=== PATIENT | female | born 1960 | race Caucasian/White ===

== ENCOUNTER 2016-11-21 09:00 | Emergency (ER) | payer OTHER ==
[2016-11-21] MEDS ORDERED: Sodium Chloride 0.9% 1,000 ML IV ONE ×2 (09:29→10:51)
--- NOTE | 2016-11-21 09:32 | EDM.PDOC ---
ED HPI DIABETIC EMERGENCY - General Chief Complaint: Diabetic Complaint Stated Complaint: HIGH BLOOD SUGAR Time Seen by Provider: 11/21/16 09:07 Source of Information: Reports: Patient - History of Present Illness INITIAL COMMENTS - FREE TEXT/NARRATIVE: 56 yo female DM 2 who is on insulin and metformin presents to ED for palpitations, shakiness, sweating, light headed where she laid on the floor. She does not have CP, sob, syncope. She checked her blood sugar this morning which was 304. She has not eaten and did not take her insulin because she never had such high readings. Her blood sugars average between 129-140. She takes metformin 500 bid, lantus 30 units and novolog 12 units TID. She has a history of severe anxiety where she takes clonapin 0.5 bid. She has not seen a physician for four months. She has an appointment next week with her PCP. - Related Data Allergies/ADRs: Allergies Allergy/AdvReac Type Severity Reaction Status Date / Time levofloxacin [From Levaquin] Allergy Nausea Verified 11/21/16 09:06 morphine Allergy Hives Verified 11/21/16 09:06 Sulfa (Sulfonamide Allergy Hives Verified 11/21/16 09:06 Antibiotics) Home Meds: Home Meds Famotidine [Pepcid] 1 tab PO DAILY 05/20/15 [History] Insulin Aspart [NovoLOG] 12 unit SQ TID 05/20/15 [History] Insulin Glarg,Human.Rec.Analog [LantUS Solostar] 30 unit SQ BID 05/20/15 [ History] Simvastatin [Zocor] 40 mg PO BEDTIME 05/20/15 [History] metFORMIN HCl [Fortamet] 1 tab PO DAILY 05/20/15 [History] traZODone 1 tab PO DAILY 05/20/15 [History] Past Medical History Gastrointestinal History: Reports: Diverticulosis, GERD, Irritable bowel syndrome Other Genitourinary History: yeast infection 2 months ago Other OB/BYN History: partial hysterectomy, 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 Psychiatric History: Reports: Anxiety, Depression Endocrine/Metabolic History: Reports: Diabetes, type II - Past Surgical History GI Surgical History: Reports: None Endocrine Surgical History: Reports: None Social & Family History - Family History Family Medical History: Noncontributory - Tobacco Use Smoking Status *Q: Never Smoker Second Hand Smoke Exposure: No - Caffeine Use Caffeine Use: Reports: Soda Caffeine Use Comment: [id number] - Recreational Drug Use Recreational Drug Use: No ED ROS GENERAL - Review of Systems Review Of Systems: See Below Constitutional: Reports: diaphoresis HEENT: Reports: No symptoms Respiratory: Reports: No Symptoms Cardiovascular: Reports: No symptoms Endocrine: Reports: high glucose, other (lightheaded, dizzy) GI/Abdominal: Reports: No symptoms : Reports: no symptoms Musculoskeletal: Reports: no symptoms Skin: Reports: no symptoms ED EXAM GENERAL NO PERIP PULSE - Physical Exam Exam: See Below Exam Limited By: Other (nervous, hyperventillating) General Appearance: alert, WD/WN, anxious Eye Exam: bilateral eye: EOMI Ears: normal external exam, normal canal Nose: normal inspection Throat/Mouth: Normal inspection, Normal lips, Normal teeth Head: atraumatic, normocephalic Neck: normal inspection, supple Respiratory/Chest: no respiratory distress Cardiovascular: regular rate, rhythm GI/Abdominal: normal bowel sounds, soft Back Exam: normal inspection, full range of motion Extremities: normal inspection, normal range of motion Neurological: alert, oriented, CN II-XII intact, normal cognition, normal reflexes Psychiatric: anxious Skin Exam: Warm, Dry, Intact, Normal color, Diaphoretic Course - Vital Signs Text/Narrative:: She had a episode of hyperventillation syndrome. EKG did not show any bradycardia or arrythmia. Her troponin is negative. Last Recorded V/S: Last Vital Signs Temp 98.5 F 11/21/16 09:09 Pulse 86 11/21/16 12:00 Resp 18 11/21/16 12:00 BP 127/74 11/21/16 12:00 Pulse Ox 95 11/21/16 12:00 - Orders/Labs/Meds Orders: Active Orders 24 hr Category Date Time Status EKG Documentation Completion [RC] STAT Care 11/21/16 09:01 Active EKG Documentation Completion [RC] STAT Care 11/21/16 09:48 Active Labs: Laboratory Tests 11/21/16 11/21/16 11/21/16 Range/Units 09:11 09:31 09:31 WBC 7.51 (4.0-11.0) K/uL RBC 4.83 (4.30-5.90) M/uL Hgb 13.5 (12.0-16.0) g/dL Hct 40.7 (36.0-46.0) % MCV 84.3 (80.0-98.0) fL MCH 28.0 (27.0-32.0) pg MCHC 33.2 (31.0-37.0) g/dL RDW Std Deviation 39.1 (28.0-62.0) fl RDW Coeff of [place] 13 (11.0-15.0) % Plt Count 306 (150-400) K/uL MPV 9.50 (7.40-12.00) fL Neut % (Auto) 41.9 L (48.0-80.0) % Lymph % (Auto) 47.7 H (16.0-40.0) % Ada % (Auto) 7.1 (0.0-15.0) % Eos % (Auto) 2.9 (0.0-7.0) % Baso % (Auto) 0.4 (0.0-1.5) % Neut # 3.2 (1.4-5.7) K/uL Lymph # 3.6 H (0.6-2.4) K/uL Ada # 0.5 (0.0-0.8) K/uL Eos # 0.2 (0.0-0.7) K/uL Baso # 0.0 (0.0-0.1) K/uL Nucleated RBC % 0.0 /100WBC Nucleated RBCs # 0 K/uL Sodium 134 L (136-146) mmol/L Potassium 4.4 (3.5-5.1) mmol/L Chloride 103 (98-110) mmol/L Carbon Dioxide 18 L (21-31) mmol/L BUN 17 (6.0-23.0) mg/dL Creatinine 0.8 (0.6-1.5) mg/dL Est Cr Clr Drug Dosing 57.74 mL/min Estimated GFR (MDRD) > 60.0 ml/min Glucose 303 H (60-110) mg/dL POC Glucose 294 H (60-110) mg/dL Calcium 9.2 (8.8-10.8) mg/dL Troponin I (0.0-0.29) NG/ML Urine Color Urine Appearance Urine pH (5.0-8.0) Ur Specific [place] (1.001-1.035) Urine Protein (NEGATIVE) mg/dL Urine Glucose (UA) (NEGATIVE) mg/dL Urine Ketones (NEGATIVE) mg/dL Urine Occult Blood (NEGATIVE) Urine Nitrite (NEGATIVE) Urine Bilirubin (NEGATIVE) Urine Urobilinogen (<2.0) EU/dL Ur Leukocyte Esterase (NEGATIVE) Urine RBC (0-2/HPF) Urine WBC (0-5/HPF) Ur Epithelial Cells (NONE-FEW) Urine Bacteria (NEGATIVE) Urine Mucus (NONE-MOD) 11/21/16 11/21/16 11/21/16 Range/Units 09:44 10:19 11:01 WBC (4.0-11.0) K/uL RBC (4.30-5.90) M/uL Hgb (12.0-16.0) g/dL Hct (36.0-46.0) % MCV (80.0-98.0) fL MCH (27.0-32.0) pg MCHC (31.0-37.0) g/dL RDW Std Deviation (28.0-62.0) fl RDW Coeff of [place] (11.0-15.0) % Plt Count (150-400) K/uL MPV (7.40-12.00) fL Neut % (Auto) (48.0-80.0) % Lymph % (Auto) (16.0-40.0) % Ada % (Auto) (0.0-15.0) % Eos % (Auto) (0.0-7.0) % Baso % (Auto) (0.0-1.5) % Neut # (1.4-5.7) K/uL Lymph # (0.6-2.4) K/uL Ada # (0.0-0.8) K/uL Eos # (0.0-0.7) K/uL Baso # (0.0-0.1) K/uL Nucleated RBC % /100WBC Nucleated RBCs # K/uL Sodium (136-146) mmol/L Potassium (3.5-5.1) mmol/L Chloride (98-110) mmol/L Carbon Dioxide (21-31) mmol/L BUN (6.0-23.0) mg/dL Creatinine (0.6-1.5) mg/dL Est Cr Clr Drug Dosing mL/min Estimated GFR (MDRD) ml/min Glucose (60-110) mg/dL POC Glucose 265 H (60-110) mg/dL Calcium (8.8-10.8) mg/dL Troponin I < 0.10 (0.0-0.29) NG/ML Urine Color YELLOW Urine Appearance CLEAR Urine pH 5.5 (5.0-8.0) Ur Specific [place] 1.025 (1.001-1.035) Urine Protein NEGATIVE (NEGATIVE) mg/dL Urine Glucose (UA) >=1000 (NEGATIVE) mg/dL Urine Ketones 15 H (NEGATIVE) mg/dL Urine Occult Blood NEGATIVE (NEGATIVE) Urine Nitrite NEGATIVE (NEGATIVE) Urine Bilirubin NEGATIVE (NEGATIVE) Urine Urobilinogen 0.2 (<2.0) EU/dL Ur Leukocyte Esterase NEGATIVE (NEGATIVE) Urine RBC 0-1 (0-2/HPF) Urine WBC 0-3 (0-5/HPF) Ur Epithelial Cells FEW (NONE-FEW) Urine Bacteria FEW (NEGATIVE) Urine Mucus LIGHT (NONE-MOD) 11/21/16 11/21/16 Range/Units 11:01 12:02 WBC (4.0-11.0) K/uL RBC (4.30-5.90) M/uL Hgb (12.0-16.0) g/dL Hct (36.0-46.0) % MCV (80.0-98.0) fL MCH (27.0-32.0) pg MCHC (31.0-37.0) g/dL RDW Std Deviation (28.0-62.0) fl RDW Coeff of [place] (11.0-15.0) % Plt Count (150-400) K/uL MPV (7.40-12.00) fL Neut % (Auto) (48.0-80.0) % Lymph % (Auto) (16.0-40.0) % Ada % (Auto) (0.0-15.0) % Eos % (Auto) (0.0-7.0) % Baso % (Auto) (0.0-1.5) % Neut # (1.4-5.7) K/uL Lymph # (0.6-2.4) K/uL Ada # (0.0-0.8) K/uL Eos # (0.0-0.7) K/uL Baso # (0.0-0.1) K/uL Nucleated RBC % /100WBC Nucleated RBCs # K/uL Sodium (136-146) mmol/L Potassium (3.5-5.1) mmol/L Chloride (98-110) mmol/L Carbon Dioxide (21-31) mmol/L BUN (6.0-23.0) mg/dL Creatinine (0.6-1.5) mg/dL Est Cr Clr Drug Dosing mL/min Estimated GFR (MDRD) ml/min Glucose (60-110) mg/dL POC Glucose 167 H (60-110) mg/dL Calcium (8.8-10.8) mg/dL Troponin I (0.0-0.29) NG/ML Urine Color Urine Appearance Urine pH (5.0-8.0) Ur Specific [place] (1.001-1.035) Urine Protein (NEGATIVE) mg/dL Urine Glucose (UA) (NEGATIVE) mg/dL Urine Ketones SMALL (NEGATIVE) mg/dL Urine Occult Blood (NEGATIVE) Urine Nitrite (NEGATIVE) Urine Bilirubin (NEGATIVE) Urine Urobilinogen (<2.0) EU/dL Ur Leukocyte Esterase (NEGATIVE) Urine RBC (0-2/HPF) Urine WBC (0-5/HPF) Ur Epithelial Cells (NONE-FEW) Urine Bacteria (NEGATIVE) Urine Mucus (NONE-MOD) Meds: Medications Discontinued Medications Generic Name Dose Route Start Last Admin Trade Name Freq PRN Reason Stop Dose Admin Sodium Chloride 1,000 mls @ 999 mls/hr 11/21/16 09:29 11/21/16 09:58 Normal Saline IV 11/21/16 10:29 999 mls/hr STAT ONE Administration Sodium Chloride 1,000 mls @ 999 mls/hr 11/21/16 10:51 11/21/16 11:08 Normal Saline IV 11/21/16 11:51 999 mls/hr .Bolus ONE Administration Departure - Departure Time of Disposition: 12:31 Disposition: Home, Self-Care 01 Condition: good Clinical Impression: Hyperglycemia, Uncontrolled diabetes mellitus, Mild dehydration, Hyperventilation syndrome Instructions: Hyperventilation, Panic Attacks, [id number], Dehydration, Adult , [id number], Hyperglycemia, [id number] Referrals: Chad Hernandez MD [Primary Care Provider] - Forms: ED Department Discharge Additional Instructions: The following information is given to patients seen in the emergency department who are being discharged to home. This information is to outline your options for follow-up care. We provide all patients seen in our emergency department with a follow-up referral. The need for follow-up, as well as the timing and circumstances, are variable depending upon the specifics of your emergency department visit. If you don't have a primary care physician on staff, we will provide you with a referral. We always advise you to contact your personal physician following an emergency department visit to inform them of the circumstance of the visit and for follow-up with them and/or the need for any referrals to a consulting specialist. The emergency department will also refer you to a specialist when appropriate. This referral assures that you have the opportunity for follow-up care with a specialist. All of these measure are taken in an effort to provide you with optimal care, which includes your follow-up. Under all circumstances we always encourage you to contact your private physician who remains a resource for coordinating your care. When calling for follow-up care, please make the office aware that this follow-up is from your recent emergency room visit. If for any reason you are refused follow-up, please contact the [facility] Emergency Department at and asked to speak to the emergency department charge nurse.
[2016-11-21 10:11] LABS: CHLORIDE,CL 103 mmol/L (98-110); SODIUM,NA 134 mmol/L (136-146)
[2016-11-21 13:18] VITALS: BP 134/82
== END 2016-11-21 12:50 | disposition home or self-care (01) ==
LOC: MW.ED 09:00
DX: E11.65 Type 2 diabetes mellitus with hyperglycemia (principal); E86.0 Dehydration; F45.8 Other somatoform disorders; K57.90 Diverticulosis of intestine, part unspecified, without perforation or abscess without bleeding; K21.9 Gastro-esophageal reflux disease without esophagitis; F41.9 Anxiety disorder, unspecified; F32.9 Major depressive disorder, single episode, unspecified; K58.9 Irritable bowel syndrome, unspecified; Z88.1 Allergy status to other antibiotic agents; Z79.899 Other long term (current) drug therapy; Z79.4 Long term (current) use of insulin; Z88.5 Allergy status to narcotic agent; Z88.2 Allergy status to sulfonamides
CPT/HCPCS: 36415; 80048; 81001; 81003; 82962; 84484; 85025; 93005; 96360; 96361; 99285; J7040; 99284

== ENCOUNTER → 2016-11-28 | Outpatient (CLI) | payer OTHER ==
[2016-11-28 08:45] LABS: CHLORIDE,CL 105 mmol/L (98-110); SODIUM,NA 139 mmol/L (136-146)
== END ==
LOC: MW.CHFP 08:05
PROVIDERS: ATTEND Emergency Medicine
DX: I10 Essential (primary) hypertension (principal); E11.9 Type 2 diabetes mellitus without complications
CPT/HCPCS: 36415; 80053; 80061; 82044; 83036

== ENCOUNTER → 2016-12-21 | Outpatient (CLI) | payer OTHER ==
--- NOTE | 2016-12-21 14:54 | MY ---
EXAMINATION: Bilateral digital mammography utilizing CAD. HISTORY: Screening exam. Comparison is made to previous studies dated 03/04/2014, 03/09/2013. FINDINGS: Bilateral scattered fibroglandular densities. No suspicious calcifications, masses or architectural distortions. No pathologic appearing lymph nodes, no abnormal skin thickening or nipple inversion. CAD highlighted regions appear normal at this time. IMPRESSION: BI-RADS category I - negative mammogram. Continued screening according to ACR-ACS guidelines sugema garsia. THE FALSE-NEGATIVE RATE OF MAMMOGRAM IS APPROXIMATELY 10%. MANAGEMENT OF A PALPABLE ABNORMALITY MUST BE BASED UPON CLINICAL GROUNDS. SENSITIVITY FOR DETECTION OF ABNORMALITIES IN DENSE BREASTS IS LOW. NOTE: A letter will be sent to the patient regarding findings. [facility] -- TACOS Wang [phone] - FAX [phone]
== END ==
LOC: MW.MAM 12:40
PROVIDERS: ATTEND Emergency Medicine
DX: Z23 Encounter for immunization (principal); Z12.31 Encounter for screening mammogram for malignant neoplasm of breast
CPT/HCPCS: G0202; G0202-26

== ENCOUNTER 2017-03-27 11:11 | Day surgery (SDC) | payer OTHER ==
[~2017-03-27 11:11] MED LIST: Acetaminophen/HYDROcodone 325-5 MG Tab PO PRN; Lactated Ringers 1,000 ML IV SCH; ceFAZolin 1 GM in Premix Bag 1 BAG IV SCH
[2017-03-27] MEDS ORDERED: Bupivacaine 0.25% 10 ML SDV ONE (12:24)
--- NOTE | 2017-03-27 12:40 | PCM.PREANE ---
Preanesthetic Assessment - Procedure Proposed Procedure: Left lateral epicondyle debridement - Anesthesia/Transfusion/Family Hx Anesthesia History: Prior Anesthesia Without Reaction Other Type of Anesthesia Reaction Comment: myself and sister , "extremely anxious coming out of surgery" Family History of Anesthesia Reaction: No Transfusion History: No Prior Transfusion(s) Intubation History: Unknown - Review of Systems General: No Symptoms Pulmonary: Other (NOVA but does not tolerate machine) Cardiovascular: Other (HTN) Gastrointestinal: Other (GERD) Other: Reports: Diabetes (insulin dependent Type II), Depression, Anxiety - Physical Assessment NPO Status Date: 03/27/17 Height: 4 ft 11.84 in Weight: 138 lb 10.732 oz ASA Class: 3 Mental Status: Alert & Oriented x3 Airway Class: Mallampati = 2 Dentition: Reports: Normal Dentition Thyro-Mental Finger Breadths: 3 Mouth Opening Finger Breadths: 3 ROM/Head Extension: Limited/Partial Lungs: Clear to Auscultation, Normal Respiratory Effort Cardiovascular: Regular Rate, Regular Rhythm, No Murmurs - Allergies Allergies/Adverse Reactions: Allergies Allergy/AdvReac Type Severity Reaction Status Date / Time levofloxacin [From Levaquin] Allergy Nausea Verified 11/21/16 09:06 morphine Allergy Hives Verified 11/21/16 09:06 Sulfa (Sulfonamide Allergy Hives Verified 11/21/16 09:06 Antibiotics) - Blood Blood Available: No Product(s) Available: None - Anesthesia Plan Pre-Op Medication Ordered: None - Acknowledgements Anesthesia Type Planned: General Anesthesia (LMA vs OET) Pt an Appropriate Candidate for the Planned Anesthesia: Yes Alternatives and Risks of Anesthesia Discussed w Pt/Guardian: Yes Pt/Guardian Understands and Agrees with Anesthesia Plan: Yes PreAnesthesia Questionnaire HEENT History: Reports: Other (See Below) Other HEENT History: wears glasses Cardiovascular History: Reports: Other (See Below) Other Cardiovascular History: states takes losartan and metoprolol to protect kidneys due to diabetes Respiratory History: Reports: PE, Sleep Apnea Other Respiratory History: cannot use CPAP, states very mild sleep apnea Gastrointestinal History: Reports: Diverticulosis, GERD, Irritable Bowel Syndrome Genitourinary History: Reports: UTI, Recurrent 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: Other OB/BYN History: partial hysterectomy, 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 Musculoskeletal History: Reports: Other (See Below) Other Musculoskeletal History: tennis elbow Psychiatric History: Reports: Anxiety, Depression Endocrine/Metabolic History: Reports: Diabetes, Type II, Obesity/BMI 30+ Hematologic History: Reports: Other (See Below) Other Hematologic History: blood clots to lungs 20 yrs ago - Past Surgical History Head Surgeries/Procedures: Reports: None HEENT Surgical History: Reports: Tonsillectomy GI Surgical History: Reports: Colon, Colonoscopy, Hernia, Inguinal Other GI Surgeries/Procedures: colon resection for diverticulitis Female Surgical History: Reports: Breast Biopsy, Hysterectomy, Tubal Ligation Endocrine Surgical History: Reports: None Musculoskeletal Surgical History: Reports: Other (See Below) Other Musculoskeletal Surgeries/Procedures:: hx of toe nails removed from both feet - SUBSTANCE USE Smoking Status *Q: Never Smoker Second Hand Smoke Exposure: No Recreational Drug Use History: No - HOME MEDS Home Medications: Home Meds Insulin Aspart [NovoLOG] 1 dose SQ ASDIRECTED 05/20/15 [History] metFORMIN HCl [Fortamet] 1 tab PO BID 05/20/15 [History] traZODone 0.5 - 1 tab PO BEDTIME 05/20/15 [History] Aspirin [Towner Aspirin] 81 mg PO ASDIRECTED 03/22/17 [History] ClonazePAM [KlonoPIN] 0.5 mg PO ASDIRECTED 03/22/17 [History] Fluconazole [Diflucan] 1 tab PO ASDIRECTED PRN 03/22/17 [History] Losartan Potassium 50 mg PO DAILY 03/22/17 [History] Metoprolol Succinate 50 mg PO DAILY 03/22/17 [History] Psyllium Husk/Aspartame [Metamucil Sugar Free] 1 dose PO ASDIRECTED 03/22/17 [ History] - CURRENT (IN HOUSE) MEDS Current Meds: Current Medications Hydrocodone Bitart/Acetaminophen ([place] 325-5 Mg) 1 - 2 tab PO Q4H PRN PRN Reason: Pain Lactated Ringer's (Ringers, Lactated) 1,000 mls @ 100 mls/hr IV ASDIRECTED [facility] Cefazolin Sodium/Dextrose 1 gm (/ Premix) 50 mls @ 100 mls/hr IV ONCALL [facility] Discontinued Medications Bupivacaine HCl (Sensorcaine-Mpf 0.25%) Confirm Administered Dose 10 ml .ROUTE .STK-MED ONE Stop: 03/27/17 12:25
[2017-03-27] MEDS ORDERED: Propofol 200 MG/20 ML SDV ONE (13:36)
[2017-03-27] MEDS ORDERED: Lidocaine 2% 5 ML SDV ONE (13:36)
[2017-03-27] MEDS ORDERED: Midazolam 1 MG/ML 2 ML SDV ONE (13:37)
[2017-03-27] MEDS ORDERED: fentaNYL 250 MCG/5 ML SDV ONE (13:37)
[2017-03-27] MEDS ORDERED: Ondansetron 4 MG/2 ML SDV ONE (13:43)
[2017-03-27] MEDS ORDERED: Rocuronium 10 MG/ML 10 ML Syringe ONE (13:43)
[2017-03-27] MEDS ORDERED: Neostigmine Methylsulfate 1 MG/ML 5 ML Syringe ONE (13:43)
[2017-03-27] MEDS ORDERED: ePHEDrine 50 MG/ML SDV ONE (14:14)
[2017-03-27] MEDS ORDERED: Bupivacaine 0.25%/EPINEPHrine 1:200,000 10 ML SDV ONE (14:20)
--- NOTE | 2017-03-27 15:05 | PCM.OPNOTE ---
- General Post-Op/Procedure Note Date of Surgery/Procedure: 03/27/17 Operative Procedure(s): Debridement left lateral epicondyle Post-Op Diagnosis: left lateral epicondylitis Anesthesia Technique: General ET Tube Primary Surgeon: Crystal Castellanos Dump Worker: Tadeo Pollard in mLs: 5 Condition: Good Free Text/Narrative:: tt=19min #[id number]
[2017-03-27] MEDS: fentaNYL 100 MCG/2 ML SDV IVPUSH PRN ×4 (15:17→15:51)
--- NOTE | 2017-03-27 15:42 | PCM.POSTAN ---
POST ANESTHESIA ASSESSMENT - MENTAL STATUS Mental Status: Alert, Oriented - VITAL SIGNS Pulse Rate: 102 SaO2: 94 Resp Rate: 24 Blood Pressure: 134/71 - RESPIRATORY Respiratory Status: respiratory rate WNL, Airway Patent, O2 Saturation Stable - CARDIOVASCULAR CV Status: Pulse Rate WNL, Blood Pressure Stable - GASTROINTESTINAL GI Status: No Symptoms - PAIN Pain Score: 6 (Treated with fentanyl) Free Text/Narrative:: Seems to be sleepy but able to voice response. no apparent nausea as in prior anesthetics at this stage of recovery. - POST OP HYDRATION Hydration Status: Adequate & Stable
--- NOTE | 2017-03-27 16:30 | PCM48HPAN ---
Post Anesthesia Note - EVALUATION WITHIN 48HRS OF ANESTHETIC Vital Signs in Normal Range: Yes Patient Participated in Evaluation: Yes Respiratory Function Stable: Yes Airway Patent: Yes Cardiovascular Function Stable: Yes Hydration Status Stable: Yes Pain Control Satisfactory: Yes Nausea and Vomiting Control Satisfactory: Yes Mental Status Recovered: Yes - COMMENTS/OBSERVATIONS Free Text/Narrative:: Pt states pain is under control and denies any nausea. No apparent anesthesia complications.
[2017-03-27 16:50] VITALS: BP 119/63
--- NOTE | 2017-03-28 01:23 | OR ---
SURGEON: Crystal Castellanos MD DATE OF PROCEDURE: 03/27/2017 PREOPERATIVE DIAGNOSIS: Left lateral epicondylitis. POSTOPERATIVE DIAGNOSIS: Left lateral epicondylitis. PROCEDURE: Debridement of left lateral epicondyle. SYRUPER: Tadeo Pollard PA-C. ANESTHESIA: General. ESTIMATED BLOOD LOSS: 5 mL. TOURNIQUET TIME: 19 minutes. COMPLICATIONS: None. DVT PROPHYLAXIS: Not indicated. IMPLANTS USED: None. BRIEF HISTORY: The patient is a 57-year-old female, who has had complaint of persistent left elbow pain. She has tried a variety of conservative treatment, which have not given her lasting relief. Due to her lack of response to conservative treatment, I did recommend surgical intervention. The risks and goals of procedure were discussed with the patient and were documented preoperatively. She agreed to proceed. DESCRIPTION OF PROCEDURE: The patient was properly identified and brought to the operating room. She was transferred from the OR cart and placed on the operating table in supine position. General anesthesia was administered. After adequate anesthesia was obtained, a well-padded tourniquet was applied to the left upper extremity. The left upper extremity was then prepped in standard fashion using ChloraPrep solution. It was then sterilely draped. A time-out was performed to ensure correct site and procedure. Preoperative antibiotics were given. The surgical site had been marked preoperatively. An Esmarch was used to exsanguinate the left upper extremity and the tourniquet was inflated to 200 mmHg. An incision was made over the lateral aspect of the elbow, centered over the lateral epicondyle. Subcutaneous flaps were made and the common extensor tendon was identified. The interval between the ECRB and EDC was identified and incised. The ECRB was then elevated. There was some poor quality tissue noted beneath the tendon which was not adherent to bone. This was also elevated. A rongeur was used to remove the tissue that appeared to be poor quality. The lateral epicondyle was then roughened to provide a good bleeding bone bed. I attempted to place a corkscrew anchor. A 2.0 mm drill was used. The 3.0 suture tack was placed without difficulty. I pulled on the suture and the anchor, I pulled out easily from the bone bed. It appeared to be due to suboptimal bone quality. I also attempted to make bony tunnels to pass the suture through. The bone bridge also broke when pulling up on the suture. Since we had adequate debridement of the lateral epicondyle along with a good bleeding bone bed, I elected to repair the tendons over this as there was good surface area for the tendon to adhere to. The 0 FiberWire was then used to reapproximate the overlying tendon. A nearly watertight closure was obtained. The tourniquet was deflated and the elbow was taken through a range of motion. No impingement was noted. No excess bleeding was found. The wound was then copiously irrigated with saline solution. The subcutaneous tissues were closed with 2-0 Monocryl and the skin was closed with a running 4-0 Monocryl suture. Steri-Strips and Benzoin were placed. 0.5% Marcaine was injected along the incision site at the completion of the procedure. Xeroform gauze was placed over the wound and a bulky dressing was applied. She was transferred back to the operating room cart and brought to recovery room in stable condition. All needle and sponge counts were correct. She was instructed to use a wrist splint at home to help rest the extensor tendon. KI / TAY /[id number]
== END 2017-03-27 16:45 | disposition home or self-care (01) ==
LOC: MW.SDS 11:11
PROVIDERS: ATTEND Orthopaedic Surgery
PROC: 0L840ZZ Division of Left Upper Arm Tendon, Open Approach (ICD-10-PCS; principal; 2017-03-27)
DX: M77.12 Lateral epicondylitis, left elbow (principal); F41.9 Anxiety disorder, unspecified; F32.9 Major depressive disorder, single episode, unspecified; E11.9 Type 2 diabetes mellitus without complications; E78.5 Hyperlipidemia, unspecified; K21.9 Gastro-esophageal reflux disease without esophagitis; I10 Essential (primary) hypertension; K58.9 Irritable bowel syndrome, unspecified; G47.33 Obstructive sleep apnea (adult) (pediatric); E66.9 Obesity, unspecified; Z88.1 Allergy status to other antibiotic agents; Z88.5 Allergy status to narcotic agent; Z88.2 Allergy status to sulfonamides; Z79.82 Long term (current) use of aspirin; Z79.4 Long term (current) use of insulin; Z79.84 Long term (current) use of oral hypoglycemic drugs; Z79.899 Other long term (current) drug therapy; Z98.51 Tubal ligation status; Z90.710 Acquired absence of both cervix and uterus; Z90.89 Acquired absence of other organs; Z98.890 Other specified postprocedural states; Z68.35 Body mass index [BMI] 35.0-35.9, adult; Z86.711 Personal history of pulmonary embolism; Z87.440 Personal history of urinary (tract) infections
CPT/HCPCS: 24359; A9270; C1713; J0690; J2250; J2405; J3010; J7120; 00400; 82962; J2704

== ENCOUNTER 2017-10-06 09:48 | Emergency (ER) | payer OTHER ==
[2017-10-06] MEDS ORDERED: Sodium Chloride 0.9% 1,000 ML IV ONE (10:17)
--- NOTE | 2017-10-06 10:31 | EDM.PDOC ---
ED HPI GENERAL MEDICAL PROBLEM - General Chief Complaint: Respiratory Problem Stated Complaint: COUGH,FEVER,SHORTNESS OF BREATH Time Seen by Provider: 10/06/17 10:15 - History of Present Illness INITIAL COMMENTS - FREE TEXT/NARRATIVE: HISTORY AND PHYSICAL: History of present illness: Patient 57-year-old white female history of diabetes who presents with concern of cough congestion body aches over last several days she denies vomiting and diarrhea or other concern she states her blood sugars have been running in the 200 range with this current illness. She also complains of sore throat Review of systems: As per history of present illness and below otherwise all systems reviewed and negative. Past medical history: As per history of present illness and as reviewed below otherwise noncontributory. Surgical history: As per history of present illness and as reviewed below otherwise noncontributory. Social history: No reported history of drug or alcohol abuse. Family history: As per history of present illness and as reviewed below otherwise noncontributory. Physical exam: HEENT: Atraumatic, normocephalic, pupils reactive, negative for conjunctival pallor or scleral icterus, mucous membranes dry, throat clear, neck supple, nontender, trachea midline. Lungs: Clear to auscultation, breath sounds equal bilaterally, chest nontender. Heart: S1S2, regular, negative for clicks, rubs, or JVD. Abdomen: Soft, nondistended, nontender. Negative for masses or hepatosplenomegaly. Negative for costovertebral tenderness. Pelvis: Stable nontender. Genitourinary: Deferred. Rectal: Deferred. Extremities: Atraumatic, negative for cords or calf pain. Neurovascular unremarkable. Neuro: Awake, alert, oriented. Cranial nerves II through XII unremarkable. Cerebellum unremarkable. Motor and sensory unremarkable throughout. Exam nonfocal. Diagnostics: CBC CMP EKG influenza screen rapid strep chest x-ray Therapeutics: Saline liter bolus Impression: #1 viral syndrome #2 history diabetes Definitive disposition and diagnosis as appropriate pending reevaluation and review of above. - Related Data Allergies Allergy/AdvReac Type Severity Reaction Status Date / Time levofloxacin [From Levaquin] Allergy Nausea Verified 11/21/16 09:06 morphine Allergy Hives Verified 11/21/16 09:06 Sulfa (Sulfonamide Allergy Hives Verified 11/21/16 09:06 Antibiotics) Home Meds: Home Meds Insulin Aspart [NovoLOG] 1 dose SQ ASDIRECTED 05/20/15 [History] metFORMIN HCl [Fortamet] 1 tab PO BID 05/20/15 [History] traZODone 0.5 - 1 tab PO BEDTIME 05/20/15 [History] Aspirin [[place] Aspirin] 81 mg PO ASDIRECTED 03/22/17 [History] ClonazePAM [KlonoPIN] 0.5 mg PO ASDIRECTED 03/22/17 [History] Fluconazole [Diflucan] 1 tab PO ASDIRECTED PRN 03/22/17 [History] Losartan Potassium 50 mg PO DAILY 03/22/17 [History] Metoprolol Succinate 50 mg PO DAILY 03/22/17 [History] Psyllium Husk/Aspartame [Metamucil Sugar Free] 1 dose PO ASDIRECTED 03/22/17 [ History] Acetaminophen/HYDROcodone [[place] 325-5 MG] 1 - 2 tab PO Q4H PRN #80 tablet 03/27 [Rx] Past Medical History HEENT History: Reports: Other (See Below) Other HEENT History: wears glasses Cardiovascular History: Reports: Other (See Below) Other Cardiovascular History: states takes losartan and metoprolol to protect kidneys due to diabetes Respiratory History: Reports: PE, Sleep Apnea Other Respiratory History: cannot use CPAP, states very mild sleep apnea Gastrointestinal History: Reports: Diverticulosis, GERD, Irritable Bowel Syndrome Genitourinary History: Reports: UTI, Recurrent 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 OB/BYN History: partial hysterectomy, 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 Musculoskeletal History: Reports: Other (See Below) Other Musculoskeletal History: tennis elbow Psychiatric History: Reports: Anxiety, Depression Endocrine/Metabolic History: Reports: Diabetes, Type II, Obesity/BMI 30+ Hematologic History: Reports: Other (See Below) Other Hematologic History: blood clots to lungs 20 yrs ago - Past Surgical History Head Surgeries/Procedures: Reports: None HEENT Surgical History: Reports: Tonsillectomy GI Surgical History: Reports: Colon, Colonoscopy, Hernia, Inguinal Other GI Surgeries/Procedures: colon resection for diverticulitis Female Surgical History: Reports: Breast Biopsy, Hysterectomy, Tubal Ligation Endocrine Surgical History: Reports: None Musculoskeletal Surgical History: Reports: Other (See Below) Other Musculoskeletal Surgeries/Procedures:: hx of toe nails removed from both feet Social & Family History - Family History Family Medical History: Noncontributory - Tobacco Use Smoking Status *Q: Never Smoker Second Hand Smoke Exposure: No - Caffeine Use Caffeine Use: Reports: Soda Caffeine Use Comment: 32ozx1 - Alcohol Use Days Per Week of Alcohol Use: 1 - Recreational Drug Use Recreational Drug Use: No ED ROS GENERAL - Review of Systems Review Of Systems: ROS reveals no pertinent complaints other than HPI. ED EXAM, GENERAL - Physical Exam Exam: See Below (See dictation) Course - Vital Signs Last Recorded V/S: Last Vital Signs Temp 37.1 C 10/06/17 09:55 Pulse 138 H 10/06/17 09:55 Resp 22 H 10/06/17 09:55 BP 144/76 H 10/06/17 09:55 Pulse Ox 96 10/06/17 09:55 - Orders/Labs/Meds Orders: Active Orders 24 hr Category Date Time Status EKG Documentation Completion [RC] STAT Care 10/06/17 10:17 Active Chest 2V [CR] Stat Exams 10/06/17 10:17 Ordered COMPREHENSIVE METABOLIC PN,CMP [CHEM] Stat Lab 10/06/17 10:16 Ordered STREP SCRN A RAPID W CULT CONF [RM] Stat Lab 10/06/17 10:21 Received Sodium Chloride 0.9% [Normal Saline] 1,000 ml Med 10/06/17 10:17 Active IV STAT Medication Orders Sodium Chloride (Normal Saline) 1,000 mls @ 999 mls/hr IV STAT ONE Stop: 10/06/17 11:17 Labs: Laboratory Tests 10/06/17 Range/Units 10:48 WBC 8.35 (4.0-11.0) K/uL RBC 4.63 (4.30-5.90) M/uL Hgb 13.0 (12.0-16.0) g/dL Hct 39.9 (36.0-46.0) % MCV 86.2 (80.0-98.0) fL MCH 28.1 (27.0-32.0) pg MCHC 32.6 (31.0-37.0) g/dL RDW Std Deviation 42.6 (28.0-62.0) fl RDW Coeff of [place] 14 (11.0-15.0) % Plt Count 269 (150-400) K/uL MPV 9.10 (7.40-12.00) fL Neut % (Auto) 76.1 (48.0-80.0) % Lymph % (Auto) 13.9 L (16.0-40.0) % [place] % (Auto) 9.7 (0.0-15.0) % Eos % (Auto) 0.2 (0.0-7.0) % Baso % (Auto) 0.1 (0.0-1.5) % Neut # (Auto) 6.4 H (1.4-5.7) K/uL Lymph # (Auto) 1.2 (0.6-2.4) K/uL [place] # (Auto) 0.8 (0.0-0.8) K/uL Eos # (Auto) 0.0 (0.0-0.7) K/uL Baso # (Auto) 0.0 (0.0-0.1) K/uL Nucleated RBC % 0.0 /100WBC Nucleated RBCs # 0 K/uL Meds: Medications Generic Name Dose Route Start Last Admin Trade Name Freq PRN Reason Stop Dose Admin Sodium Chloride 1,000 mls @ 999 mls/hr 10/06/17 10:17 Normal Saline IV 10/06/17 11:17 STAT ONE Departure - Departure Time of Disposition: 11:01 Disposition: Home, Self-Care 01 Condition: Good Clinical Impression: Influenza, Diabetes - Discharge Information Referrals: Chad Hernandez MD [Primary Care Provider] - Forms: ED Department Discharge Additional Instructions: The following information is given to patients seen in the emergency department who are being discharged to home. This information is to outline your options for follow-up care. We provide all patients seen in our emergency department with a follow-up referral. The need for follow-up, as well as the timing and circumstances, are variable depending upon the specifics of your emergency department visit. If you don't have a primary care physician on staff, we will provide you with a referral. We always advise you to contact your personal physician following an emergency department visit to inform them of the circumstance of the visit and for follow-up with them and/or the need for any referrals to a consulting specialist. The emergency department will also refer you to a specialist when appropriate. This referral assures that you have the opportunity for followup care with a specialist. All of these measure are taken in an effort to provide you with optimal care, which includes your followup. Under all circumstances we always encourage you to contact your private physician who remains a resource for coordinating your care. When calling for followup care, please make the office aware that this follow-up is from your recent emergency room visit. If for any reason you are refused follow-up, please contact the [facility] emergency department at and asked to speak to the emergency department charge nurse. Continue current medications Tamiflu as prescribed push fluids Motrin/Tylenol as directed follow-up primary medical doctor as needed as discussed and return as needed as discussed - My Orders Last 24 Hours: My Active Orders 10/06/17 10:16 COMPREHENSIVE METABOLIC PN,CMP [CHEM] Stat 10/06/17 10:17 EKG Documentation Completion [RC] STAT Chest 2V [CR] Stat Sodium Chloride 0.9% [Normal Saline] 1,000 ml IV STAT 10/06/17 10:21 STREP SCRN A RAPID W CULT CONF [RM] Stat - Assessment/Plan Last 24 Hours: My Active Orders 10/06/17 10:16 COMPREHENSIVE METABOLIC PN,CMP [CHEM] Stat 10/06/17 10:17 EKG Documentation Completion [RC] STAT Chest 2V [CR] Stat Sodium Chloride 0.9% [Normal Saline] 1,000 ml IV STAT 10/06/17 10:21 STREP SCRN A RAPID W CULT CONF [RM] Stat
[2017-10-06 11:14] LABS: CHLORIDE,CL 104 mmol/L (98-110); SODIUM,NA 135 mmol/L (136-146)
[2017-10-06 12:32] VITALS: BP 138/75
--- NOTE | 2017-10-07 16:07 | CR ---
EXAM DATE: 10/06/17 PATIENT'S AGE: 57 Patient: MARIA FERNANDA PADILLA Facility: [place], [place] Site . Site : [id number] Study: XRay Chest [id number]/28/2018 11:47:52 AM Ordering Physician: Doctor Jamil Final Report: HISTORY: Cough, shortness of breath. TECHNIQUE: Two views of the chest. COMPARISON: No prior. FINDINGS: Cardiac size within normal limits. Pulmonary vasculature within normal limits. No consolidation. Possible lung nodule in the right cardiophrenic angle region. Recommend comparison with prior chest radiographs or radiographic followup. No pulmonary edema. No pneumothorax or pleural effusion. Degenerative changes of the spine. IMPRESSION: 1. No consolidation or pulmonary edema. 2. Possible nodule in the right cardiophrenic angle. Recommend comparison with prior chest radiographs or radiographic followup. Dictated by Pipe Shankar MD @ 10/06/2017 12:17:05 PM Dictated by: Pipe Shankar MD @ 10/06/2017 12:17:10 (Electronic Signature) Report Signed by Proxy. ABI
== END 2017-10-06 12:08 | disposition home or self-care (01) ==
LOC: MW.ED 09:48
DX: J10.1 Influenza due to other identified influenza virus with other respiratory manifestations (principal); B34.9 Viral infection, unspecified; E11.9 Type 2 diabetes mellitus without complications; Z88.1 Allergy status to other antibiotic agents; Z88.5 Allergy status to narcotic agent; Z88.2 Allergy status to sulfonamides; Z79.4 Long term (current) use of insulin; Z79.899 Other long term (current) drug therapy
CPT/HCPCS: 36415; 71046; 80053; 85025; 87081; 87804; 87880; 93005; 96360; 99285; J7040

== ENCOUNTER 2018-10-06 15:13 | Emergency (ER) | payer OTHER ==
--- NOTE | 2018-10-06 15:30 | EDM.PDOC ---
ED HPI GENERAL MEDICAL PROBLEM - General Chief Complaint: Head Injury Stated Complaint: FELL ON ICE AND HIT HEAD Time Seen by Provider: 10/06/18 15:30 Source of Information: Reports: Patient - History of Present Illness INITIAL COMMENTS - FREE TEXT/NARRATIVE: HISTORY AND PHYSICAL: History of present illness: [Patient presents with headache and dizziness after she slipped and fell on the ice this morning she did strike the back of her head and denies loss of consciousness but has had increased headache she currently rates 5 out of 10 radiating to the left eye no fever vomiting chills sweats ] Review of systems: As per history of present illness and below otherwise all systems reviewed and negative. Past medical history: As per history of present illness and as reviewed below otherwise noncontributory. Surgical history: As per history of present illness and as reviewed below otherwise noncontributory. Social history: No reported history of drug or alcohol abuse. Family history: As per history of present illness and as reviewed below otherwise noncontributory. Physical exam: HEENT: Atraumatic, normocephalic, pupils reactive, negative for conjunctival pallor or scleral icterus, mucous membranes moist, throat clear, neck supple, nontender, trachea midline. Lungs: Clear to auscultation, breath sounds equal bilaterally, chest nontender. Heart: S1S2, regular, negative for clicks, rubs, or JVD. Abdomen: Soft, nondistended, nontender. Negative for masses or hepatosplenomegaly. Negative for costovertebral tenderness. Pelvis: Stable nontender. Genitourinary: Deferred. Rectal: Deferred. Extremities: Atraumatic, negative for cords or calf pain. Neurovascular unremarkable. Neuro: Awake, alert, oriented. Cranial nerves II through XII unremarkable. Cerebellum unremarkable. Motor and sensory unremarkable throughout. Exam nonfocal. Diagnostics: []Head CT no contrast Therapeutics: Promethazine and mg #30 no refill Impression: []Concussion Definitive disposition and diagnosis as appropriate pending reevaluation and review of above. headache Pain Score (Numeric/FACES): 8 - Related Data Allergies Allergy/AdvReac Type Severity Reaction Status Date / Time levofloxacin [From Levaquin] Allergy Rash Verified 10/06/18 15:37 morphine Allergy Itching Verified 10/06/18 15:37 Sulfa (Sulfonamide Allergy Hives Verified 10/06/18 15:37 Antibiotics) Home Meds: Home Meds Insulin Aspart [NovoLOG] 1 dose SQ ASDIRECTED MDD 115 units 05/20/15 [History] metFORMIN HCl [Fortamet] 1,000 mg PO BID 05/20/15 [History] traZODone 200 mg PO BEDTIME 05/20/15 [History] Aspirin [[place] Aspirin EC] 81 mg PO ASDIRECTED 03/22/17 [History] ClonazePAM [KlonoPIN] 0.5 - 1 mg PO DAILY PRN 03/22/17 [History] Losartan Potassium 50 mg PO QAM 03/22/17 [History] Metoprolol Succinate 50 mg PO QAM 03/22/17 [History] Psyllium Husk/Aspartame [Metamucil Sugar Free] 1 dose PO ASDIRECTED PRN [History] Diclofenac Sodium [Voltaren] 50 mg PO BID 08/25/18 [History] Magnesium Oxide [Magnesium] 1 - 2 tab PO DAILY PRN 08/25/18 [History] Ranitidine [Zantac] 150 mg PO BID 08/25/18 [History] clonazePAM [Clonazepam] 1 mg PO BEDTIME PRN 08/25/18 [History] Past Medical History HEENT History: Reports: Other (See Below) Other HEENT History: wears glasses Cardiovascular History: Reports: Other (See Below) Other Cardiovascular History: states takes losartan and metoprolol to protect kidneys due to diabetes Respiratory History: Reports: PE, Sleep Apnea Other Respiratory History: cannot use CPAP, states very mild sleep apnea Gastrointestinal History: Reports: Diverticulosis, GERD, Irritable Bowel Syndrome Genitourinary History: Reports: UTI, Recurrent 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, 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 Musculoskeletal History: Reports: Other (See Below) Other Musculoskeletal History: tennis elbow Neurological History: Reports: Other (See Below) Other Neuro History: hx of motion sickness Psychiatric History: Reports: Anxiety, Depression Other Psychiatric History: very Claustrophobic Endocrine/Metabolic History: Reports: Diabetes, Type II, Obesity/BMI 30+ Hematologic History: Reports: Other (See Below) Other Hematologic History: blood clots to lungs 20 yrs ago - Past Surgical History HEENT Surgical History: Reports: Tonsillectomy GI Surgical History: Reports: Colon, Colonoscopy, Hernia, Inguinal Other GI Surgeries/Procedures: colon resection for diverticulitis Other Musculoskeletal Surgeries/Procedures:: hx of toe nails removed from both feet Social & Family History - Family History Family Medical History: Noncontributory - Caffeine Use Caffeine Use: Reports: Soda Caffeine Use Comment: 32ozx1 ED ROS GENERAL - Review of Systems Review Of Systems: See Below ED EXAM, HEAD INJURY - Physical Exam Exam: See Below Course - Vital Signs Last Recorded V/S: Last Vital Signs Temp 98.3 F 10/06/18 15:34 Pulse 91 10/06/18 15:34 Resp 18 10/06/18 15:34 BP 160/74 H 10/06/18 15:34 Pulse Ox 95 10/06/18 15:34 Departure - Departure Time of Disposition: 16:08 Disposition: Home, Self-Care 01 Condition: Good Clinical Impression: Concussion - Discharge Information Referrals: Chad Hernandez MD [Primary Care Provider] - Forms: ED Department Discharge Additional Instructions: The following information is given to patients seen in the emergency department who are being discharged to home. This information is to outline your options for follow-up care. We provide all patients seen in our emergency department with a follow-up referral. The need for follow-up, as well as the timing and circumstances, are variable depending upon the specifics of your emergency department visit. If you don't have a primary care physician on staff, we will provide you with a referral. We always advise you to contact your personal physician following an emergency department visit to inform them of the circumstance of the visit and for follow-up with them and/or the need for any referrals to a consulting specialist. The emergency department will also refer you to a specialist when appropriate. This referral assures that you have the opportunity for follow-up care with a specialist. All of these measure are taken in an effort to provide you with optimal care, which includes your follow-up. Under all circumstances we always encourage you to contact your private physician who remains a resource for coordinating your care. When calling for follow-up care, please make the office aware that this follow-up is from your recent emergency room visit. If for any reason you are refused follow-up, please contact the [facility] emergency department at and asked to speak to the emergency department charge nurse.
--- NOTE | 2018-10-06 16:07 | CT ---
EXAMINATION: Non contrast CT head. Coronal and sagittal reformats. HISTORY: Pain FINDINGS: No evidence of intra or extra axial hemorrhage, mass, midline shift, hydrocephalus or edema. No hypoattenuation changes in the major vascular territories to suggest acute infarct. No abnormal intracranial calcifications are detected. No evidence of substantial vascular calcifications. Paranasal sinuses and mastoid air cells are well aerated without substantial findings. Orbits and globes are symmetric. Pituitary fossa appears unremarkable. Calvarium is intact. No evidence of skull fracture. IMPRESSION: No acute intracranial findings.
[2018-10-06] MEDS ORDERED: Ondansetron 4 MG/2 ML SDV IVPUSH ONE (16:13)
[2018-10-06] MEDS ORDERED: Ketorolac 30 MG/ML SDV IVPUSH ONE (16:13)
[2018-10-06 17:16] VITALS: BP 127/84
== END 2018-10-06 16:27 | disposition home or self-care (01) ==
LOC: MW.ED 15:13
DX: S06.0X0A Concussion without loss of consciousness, initial encounter (principal); Z88.5 Allergy status to narcotic agent; Z88.8 Allergy status to other drugs, medicaments and biological substances; Z79.4 Long term (current) use of insulin; Z79.899 Other long term (current) drug therapy; E11.9 Type 2 diabetes mellitus without complications; E66.9 Obesity, unspecified; W01.10XA Fall on same level from slipping, tripping and stumbling with subsequent striking against unspecified object, initial encounter
CPT/HCPCS: 70450; 96374; 96375; 99284; J1885; J2405

== ENCOUNTER 2020-05-07 07:47 | Emergency (ER) | payer OTHER ==
[2020-05-07] MEDS ORDERED: Lidocaine 2% Viscous Solution 15 ML Cup TOP ONE (08:19)
--- NOTE | 2020-05-07 08:29 | EDM.PDOC ---
ED [facility] GENERAL MEDICAL PROBLEM - General Chief Complaint: General Stated Complaint: YEAST INFECTION Time Seen by Provider: 05/07/20 08:18 - History of Present Illness INITIAL COMMENTS - FREE TEXT/NARRATIVE: HISTORY AND PHYSICAL: History of present illness: This 60-year-old female with a past medical history of diabetes mellitus, obesity, cholelithiasis presents to the emergency department after having a difficult course with multiple antibiotic regimens. Initially came in with abdominal discomfort and diarrhea, was given antibiotics, then had a urinary tract infection likely secondary to contamination of the urinary system and urethra secondary to diarrhea which also necessitated more antibiotics which then prompted the patient having yeast infection symptoms. She is frustrated because she has severe amount of tenderness and had burning sensation last night that she rated as extreme and very painful. She is frustrated also because she has not had a vaginal exam. She denies any sexual intercourse over the last 6 months and is in a monogamous relationship with her . No urinary symptoms other than when she urinates the vaginal area mane but there is no dysuria. No continued diarrhea or other symptoms. No other modifying, aggravating or alleviating factors. Review of systems: A 10-point review of systems, other than pertinent positives and negatives as stated per HPI, is otherwise negative. Past medical history: As per history of present illness and as reviewed below otherwise noncontributory. Surgical history: As per history of present illness and as reviewed below otherwise noncontri butory. Social history: No reported history of drug or alcohol abuse. Family history: As per history of present illness and as reviewed below otherwise noncontributory. Physical exam: VITAL SIGNS: Reviewed. GENERAL: Appears to be in acute pain in the vaginal area complains about this. Occasionally rubs area. HEAD: No signs of head trauma. EYES: Pupils are equal. Extraocular motions intact. EARS: Hearing grossly intact. MOUTH: Oropharynx is normal. NECK: No adenopathy, no JVD. CHEST: Chest with clear breath sounds bilaterally. No wheezes, rales, or rhonchi. CARDIAC: Regular rate and rhythm. Normal S1 and S2, without murmurs, gallops, or rubs. VASCULAR: Peripheral pulses normal and equal in all extremities. ABDOMEN: Soft, without detectable tenderness. No sign of distention. No rebound or guarding, and no masses palpated. MUSCULOSKELETAL: Good range of motion of all major joints. Extremities without clubbing, cyanosis or edema. NEUROLOGIC EXAM: Alert and oriented x 3. No focal sensory or motor deficits. Speech normal. Follows commands. PSYCHIATRIC: Mood normal. SKIN: No rash or lesions. Vaginal exam with nurse standby Nurse standby was Emilie Standard lithotomy position after informed consent. The external vaginal area shows vaginitis without any evidence of infection or purulence. Speculum exam shows a normal-appearing cervix. The patient does have a history of hysterectomy but the cervix was left. There is some erythema in the vaginal area. Initial Differential Diagnosis & Plan: Vaginitis, yeast infection, UTI Low risk for GC chlamydia. I will obtain new cultures as I have done during the vaginal exam. I do not feel the patient needs additional medications and I feel that the suppository is causing irritation. Clinical signs of external infe ction appear to be resolved. I do not feel that she needs continued antifungal treatment at this point and have recommended that she have tight control of her glucose, we will give some topical lidocaine to see if this helps, and have her follow-up with her [employer]. My diagnostic impression: 1. Resolving vaginitis secondary to fungal infection 2. Antibiotic induced vaginal candidiasis 3. Diabetes mellitus with poor control 4. History of obesity Plan is for discharge with topical lidocaine. vaginal area Pain Score (Numeric/FACES): 10 - Related Data Allergies Allergy/AdvReac Type Severity Reaction Status Date / Time levofloxacin [From Levaquin] Allergy Rash Verified 05/07/20 07:58 morphine Allergy Itching Verified 05/07/20 07:58 Sulfa (Sulfonamide Allergy Hives Verified 05/07/20 07:58 Antibiotics) Home Meds: Home Meds Insulin Aspart [NovoLOG] 1 dose SQ ASDIRECTED MDD 115 units 05/20/15 [History] traZODone 200 mg PO BEDTIME 05/20/15 [History] Aspirin [[place] Aspirin EC] 81 mg PO ASDIRECTED 03/22/17 [History] ClonazePAM [KlonoPIN] 0.5 - 1 mg PO DAILY PRN 03/22/17 [History] Losartan Potassium 50 mg PO QAM 03/22/17 [History] Metoprolol Succinate 50 mg PO QAM 03/22/17 [History] Psyllium Husk/Aspartame [Metamucil Sugar Free] 1 dose PO ASDIRECTED PRN 03/22/17 [History] Ranitidine [Zantac] 150 mg PO BID 08/25/18 [History] clonazePAM [Clonazepam] 1 mg PO BEDTIME PRN 08/25/18 [History] Fluconazole 150 mg PO DAILY 05/07/20 [History] L Acidophil/B Lactis/B Longum [Florajen3] 460 mg PO DAILY 05/07/20 [History] Lidocaine 2% [Lidocaine 2% Jelly] 20 ml .XX TID #2 urojet 05/07/20 [Rx] Terconazole 80 mg VAG DAILY 05/07/20 [History] Past Medical History HEENT History: Reports: Other (See Below) Other HEENT History: wears glasses Cardiovascular History: Reports: Other (See Below) Other Cardiovascular History: states takes losartan and metoprolol to protect kidneys due to diabetes Respiratory History: Reports: PE, Sleep Apnea Other Respiratory History: cannot use CPAP, states very mild sleep apnea Gastrointestinal History: Reports: Diverticulosis, GERD, Irritable Bowel Syndrome Genitourinary History: Reports: UTI, Recurrent [employer]ER History: Reports: Other [employer] History: partial hysterectomy, 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 Musculoskeletal History: Reports: Other (See Below) Other Musculoskeletal History: tennis elbow Neurological History: Reports: Other (See Below) Other Neuro History: hx of motion sickness Psychiatric History: Reports: Anxiety, Depression Other Psychiatric History: very Claustrophobic Endocrine/Metabolic History: Reports: Diabetes, Type II, Obesity/BMI 30+ Hematologic History: Reports: Other (See Below) Other Hematologic History: blood clots to lungs 20 yrs ago - Infectious Disease History Infectious Disease History: Reports: None - Past Surgical History Head Surgeries/Procedures: Reports: None HEENT Surgical History: Reports: Tonsillectomy GI Surgical History: Reports: Colon, Colonoscopy, Hernia, Inguinal Other GI Surgeries/Procedures: colon resection for diverticulitis Other Musculoskeletal Surgeries/Procedures:: hx of toe nails removed from both feet Social & Family History - Family History Family Medical History: Noncontributory - Tobacco Use Smoking Status *Q: Never Smoker - Caffeine Use Caffeine Use: Reports: None Caffeine Use Comment: 32ozx1 - Recreational Drug Use Recreational Drug Use: No ED ROS GENERAL - Review of Systems Review Of Systems: See Below (noted) ED EXAM, GENERAL - Physical Exam Exam: See Below (noted) Course - Vital Signs Last Recorded V/S: Last Vital Signs Temp 97.4 F 05/07/20 07:55 Pulse 97 05/07/20 07:55 Resp 18 05/07/20 07:55 BP 149/88 H 05/07/20 07:55 Pulse Ox 94 L 05/07/20 07:55 - Orders/Labs/Meds Orders: Active Orders 24 hr Category Date Time Status CULTURE GENITAL [RM] Stat Lab 05/07/20 08:22 Ordered Meds: Medications Discontinued Medications Generic Name Dose Route Start Last Admin Trade Name Harvey PRN Reason Stop Dose Admin Lidocaine HCl 15 ml 05/07/20 08:19 Xylocaine 2% Viscous TOP 05/07/20 08:20 ONETIME ONE Departure - Departure Time of Disposition: :28 Disposition: Home, Self-Care 01 Clinical Impression: Vaginitis and vulvovaginitis, Uncontrolled type 2 diabetes mellitus - Discharge Information *PRESCRIPTION DRUG MONITORING PROGRAM REVIEWED*: Not Applicable *COPY OF PRESCRIPTION DRUG MONITORING REPORT IN PATIENT JAZMYNE: Not Applicable Instructions: Atrophic Vaginitis, [id number] Referrals: Chad Hernandez MD [Primary Care Provider] - Additional Instructions: The following information is given to patients seen in the emergency department who are being discharged to home. This information is to outline your options for follow-up care. We provide all patients seen in our emergency department with a follow-up referral. The need for follow-up, as well as the timing and circumstances, are variable depending upon the specifics of your emergency department visit. If you don't have a primary care physician on staff, we will provide you with a referral. We always advise you to contact your personal physician following an emergency department visit to inform them of the circumstance of the visit and for follow-up with them and/or the need for any referrals to a consulting specialist. The emergency department will also refer you to a specialist when appropriate. This referral assures that you have the opportunity for follow-up care with a specialist. All of these measure are taken in an effort to provide you with optimal care, which includes your follow-up. Thank you for coming to the [facility] urgency department for your care today. It was Dr. Aguayo's pleasure to take care of you. [facility]'s [address] [address] [facility] [address] [place] [id number] You have vulvovaginitis. It appears that your infection is improving. You may have atrophic vulvovaginitis and we have included information about that. Please follow-up with your OB doctor as they can prescribe medications that will help with this. Under all circumstances we always encourage you to contact your private physician who remains a resource for coordinating your care. When calling for follow-up care, please make the office aware that this follow-up is from your recent emergency room visit. If for any reason you are refused follow-up, please contact the [facility] Emergency Department at and asked to speak to the emergency department charge nurse. Sepsis Event Note (ED) - Evaluation Sepsis Screening Result: No Definite Risk - Focused Exam Vital Signs: Vital Signs Temp Pulse Resp BP Pulse Ox 05/07/20 07:55 97.4 F 97 18 149/88 H 94 L - My Orders Last 24 Hours: My Active Orders 05/07/20 08:22 CULTURE GENITAL [RM] Stat - Assessment/Plan Last 24 Hours: My Active Orders 05/07/20 08:22 CULTURE GENITAL [RM] Stat
[2020-05-07 08:59] VITALS: BP 128/65; PULSE 79
== END 2020-05-07 08:57 | disposition home or self-care (01) ==
LOC: MW.ED 07:47
DX: N76.0 Acute vaginitis (principal); E11.65 Type 2 diabetes mellitus with hyperglycemia; K21.9 Gastro-esophageal reflux disease without esophagitis; B37.3 Candidiasis of vulva and vagina; F41.9 Anxiety disorder, unspecified; F32.9 Major depressive disorder, single episode, unspecified; T36.95XA Adverse effect of unspecified systemic antibiotic, initial encounter; Z68.35 Body mass index [BMI] 35.0-35.9, adult; Z79.899 Other long term (current) drug therapy; Z88.2 Allergy status to sulfonamides; Z88.5 Allergy status to narcotic agent; Z88.1 Allergy status to other antibiotic agents; Z79.4 Long term (current) use of insulin; Z79.82 Long term (current) use of aspirin
CPT/HCPCS: 87070; 87480; 87510; 87660; 99283; A9270

== ENCOUNTER 2021-01-26 11:25 | Emergency (ER) | payer BC ==
[2021-01-26] MEDS ORDERED: Sodium Chloride 0.9% 2.5 ML Syringe FLUSH PRN (11:31)
[2021-01-26] MEDS ORDERED: Sodium Chloride 0.9% 10 ML Syringe FLUSH PRN (11:31)
--- NOTE | 2021-01-26 11:37 | EDM.PDOC ---
ED [facility] GENERAL MEDICAL PROBLEM - General Stated Complaint: UNCONCIOUS AT WORK Time Seen by Provider: 01/26/21 11:28 - History of Present Illness INITIAL COMMENTS - FREE TEXT/NARRATIVE: History of present illness: The patient says that she has visual field problems especially in the left side off and on for months. Today at 1030 it happened and persists. EMS felt like she might have a slight left facial droop as well. The patient is diabetic and treated for blood pressure and cholesterol. She does not smoke. She does not have a family history of heart disease or strokes. [] Review of systems: As per history of present illness and below otherwise all systems reviewed and negative. Past medical history: As per history of present illness and as reviewed below otherwise noncontributory. Surgical history: As per history of present illness and as reviewed below otherwise noncontributory. Social history: No reported history of drug or alcohol abuse. Family history: As per history of present illness and as reviewed below otherwise no ncontributory. Physical exam: Constitutional - well developed, well-nourished and in no acute distress HEENT - normocephalic, no evidence of trauma - external nose and mouth normal - no mass in neck and no JVD - mucosae moist EYES -fundi without dilatation shows normal vasculature-full EOM, PERRL, no icterus - no evidence of inflammation, injection, or drainage Respiratory - no respiratory distress, equal bilateral expansion, lungs clear to auscultation and no abnormal lung sounds Cardiovascular - Regular Rhythm with S1 and S2 appreciated and no murmur, gallop or rub. GI - abdomen soft without distension or organomegaly - normal bowel sounds - no guard or rebound Musculoskeletal no gross deformity of long bones or joints - no tenderness, swelling or edema Neurologic - Alert and oriented times four - CN II-XII grossly intact except for vision-visual cancino by confrontation she cannot count number of fingers in the left visual field with her left eye but she has good peripheral vision with the right eye and in the right visual field with the left eye.- motor sensory and coordination symmetrically normal Psychiatric - appropriate mood and affect with normal thought content Hematologic - No petechiae or purpura - mucosa appropriate color and sclera not pale - normal nail bed color and refill Integument - no rash or evidence of trauma - normal turgor Diagnostics: [] Therapeutics: [] Impression: [] Plan: [] Definitive disposition and diagnosis as appropriate pending reevaluation and review of above. Chest/Head Pain Score (Numeric/FACES): 6 - Related Data Allergies Allergy/AdvReac Type Severity Reaction Status Date / Time levofloxacin [From Levaquin] Allergy Rash Verified 01/26/21 11:39 morphine Allergy Itching Verified 01/26/21 11:39 Sulfa (Sulfonamide Allergy Hives Verified 01/26/21 11:39 Antibiotics) Home Meds: Home Meds Insulin Aspart [NovoLOG] 1 dose SQ ASDIRECTED MDD 115 units 05/20/15 [History] traZODone 200 mg PO BEDTIME 05/20/15 [History] Aspirin [[place] Aspirin EC] 81 mg PO ASDIRECTED 03/22/17 [History] ClonazePAM [KlonoPIN] 0.5 - 1 mg PO DAILY PRN 03/22/17 [History] Losartan Potassium 50 mg PO QAM 03/22/17 [History] Metoprolol Succinate 50 mg PO QAM 03/22/17 [History] Psyllium Husk/Aspartame [Metamucil Sugar Free] 1 dose PO ASDIRECTED PRN 03/22/17 [History] Ranitidine [Zantac] 150 mg PO BID 08/25/18 [History] clonazePAM [Clonazepam] 1 mg PO BEDTIME PRN 08/25/18 [History] Fluconazole 150 mg PO DAILY 05/07/20 [History] L Acidophil/B Lactis/B Longum [Florajen3] 460 mg PO DAILY 05/07/20 [History] Lidocaine 2% [Lidocaine 2% Jelly] 20 ml .XX TID #2 urojet 05/07/20 [Rx] Terconazole 80 mg VAG DAILY 05/07/20 [History] Past Medical History HEENT History: Reports: Other (See Below) Other HEENT History: wears glasses Cardiovascular History: Reports: Other (See Below) Other Cardiovascular History: states takes losartan and metoprolol to protect kidneys due to diabetes Respiratory History: Reports: PE, Sleep Apnea Other Respiratory History: cannot use CPAP, states very mild sleep apnea Gastrointestinal History: Reports: Diverticulosis, GERD, Irritable Bowel Syndrome Genitourinary History: Reports: UTI, Recurrent [employer] History: Reports: Other [employer] History: partial hysterectomy, 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 Musculoskeletal History: Reports: Other (See Below) Other Musculoskeletal History: tennis elbow Neurological History: Reports: Other (See Below) Other Neuro History: hx of motion sickness Psychiatric History: Reports: Anxiety, Depression Other Psychiatric History: very Claustrophobic Endocrine/Metabolic History: Reports: Diabetes, Type II, Obesity/BMI 30+ Hematologic History: Reports: Other (See Below) Other Hematologic History: blood clots to lungs 20 yrs ago - Infectious Disease History Infectious Disease History: Reports: None - Past Surgical History Head Surgeries/Procedures: Reports: None HEENT Surgical History: Reports: Tonsillectomy GI Surgical History: Reports: Colon, Colonoscopy, Hernia, Inguinal Other GI Surgeries/Procedures: colon resection for diverticulitis Other Musculoskeletal Surgeries/Procedures:: hx of toe nails removed from both feet Social & Family History - Family History Family Medical History: No Pertinent Family History - Caffeine Use Caffeine Use: Reports: None Caffeine Use Comment: 32ozx1 ED ROS GENERAL - Review of Systems Review Of Systems: Comprehensive ROS is negative, except as noted in HPI. ED EXAM, GENERAL - Physical Exam Exam: See Below Free Text/Narrative:: My physical exam is in the HPI #1 Interpretation EKG Interpretation Comments: EKG shows a sinus rhythm. Heart rate 79. QRS duration 129. SC interval 154. QT duration 472. Crivitz XX 6. There is a wide complex QRS with reciprocal repolarization changes in the ST. This is compared to 10/06/2017. Impression left bundle branch block which compared to prior is an extension of the QRS duration where previously there was a similar delay read as intraventricular conduction delay falling short of left bundle branch block criteria. Impression no acute injury Course - Vital Signs Text/Narrative:: 12:16 PM the patient had a history of retinal detachment in the remote past. She has an ultrasound today that looks normal. I discussed the case with Dr. Boo who looked at her past records from Dr. Aranda and based upon the retinal findings that they had there in the clinical history and exam today he felt like this is all I related. He wants the patient to come directly to the office. Since MRI is able to do her at 5 PM tonight and have an MRI of the brain Dr. Bower agreed if his eye exam is normal he will send her back to register at [facility] and have an MRI tonight. All follow-up and also have her primary doctor follow-up on the MRI. Last Recorded V/S: Last Vital Signs Temp 36.4 C 01/26/21 11:25 Pulse 74 01/26/21 13:08 Resp 16 01/26/21 13:08 BP 130/60 01/26/21 13:08 Pulse Ox 97 01/26/21 13:08 - Orders/Labs/Meds Orders: Active Orders 24 hr Category Date Time Status EKG Documentation Completion [RC] AM Care 01/26/21 11:31 Active Visual Acuity [Vision Test] [RC] ASDIRECTED Care 01/26/21 12:49 Active Sodium Chloride 0.9% [Saline Flush] Med 01/26/21 11:31 Active 10 ml FLUSH ASDIRECTED PRN Sodium Chloride 0.9% [Saline Flush] Med 01/26/21 11:31 Active 2.5 ml FLUSH ASDIRECTED PRN Saline Lock Insert [OM.PC] Stat Oth 01/26/21 11:31 Ordered Medication Orders Sodium Chloride (Sodium Chloride 0.9% 10 Ml Syringe) 10 ml FLUSH ASDIRECTED PRN PRN Reason: Keep Vein Open Last Admin: 01/26/21 12:08 Dose: 10 ml Documented by: ALEC Sodium Chloride (Sodium Chloride 0.9% 2.5 Ml Syringe) 2.5 ml FLUSH ASDIRECTED PRN PRN Reason: Keep Vein Open Last Admin: 01/26/21 12:08 Dose: 2.5 ml Documented by: ALEC Labs: Laboratory Tests 01/26/21 01/26/21 01/26/21 Range/Units 11:33 11:33 11:33 WBC 8.86 (4.0-11.0) K/uL RBC 4.83 (4.30-5.90) M/uL Hgb 14.2 (12.0-16.0) g/dL Hct 43.0 (36.0-46.0) % MCV 89.0 (80.0-98.0) fL MCH 29.4 (27.0-32.0) pg MCHC 33.0 (31.0-37.0) g/dL RDW Std Deviation 42.6 (28.0-62.0) fl RDW Coeff of [place]ma 13 (11.0-15.0) % Plt Count 354 (150-400) K/uL MPV 9.50 (7.40-12.00) fL Neut % (Auto) 50.5 (48.0-80.0) % Lymph % (Auto) 38.9 (16.0-40.0) % Ceiba % (Auto) 7.1 (0.0-15.0) % Eos % (Auto) 3.0 (0.0-7.0) % Baso % (Auto) 0.5 (0.0-1.5) % Neut # (Auto) 4.5 (1.4-5.7) K/uL Lymph # (Auto) 3.5 H (0.6-2.4) K/uL Ceiba # (Auto) 0.6 (0.0-0.8) K/uL Eos # (Auto) 0.3 (0.0-0.7) K/uL Baso # (Auto) 0.0 (0.0-0.1) K/uL Nucleated RBC % 0.0 /100WBC Nucleated RBCs # 0 K/uL ESR 9 (0-29) mm/hr Sodium 140 (136-145) mmol/L Potassium 3.9 (3.5-5.1) mmol/L Chloride 102 (98-107) mmol/L Carbon Dioxide 27.5 (21.0-32.0) mmol/L BUN 20 H (7.0-18.0) mg/dL Creatinine 1.0 (0.6-1.0) mg/dL Est Cr Clr Drug Dosing 55.18 mL/min Estimated GFR (MDRD) 56.9 ml/min Glucose 118 H (74-106) mg/dL Calcium 9.0 (8.5-10.1) mg/dL Total Bilirubin 0.5 (0.2-1.0) mg/dL AST 17 (15-37) IU/L ALT 26 (14-63) IU/L Alkaline Phosphatase 61 (46-116) U/L Total Protein 7.7 (6.4-8.2) g/dL Albumin 3.4 (3.4-5.0) g/dL Globulin 4.3 H (2.6-4.0) g/dL Albumin/Globulin Ratio 0.8 L (0.9-1.6) Meds: Medications Generic Name Dose Route Start Last Admin Trade Name Freq PRN Reason Stop Dose Admin Sodium Chloride 10 ml 01/26/21 11:31 01/26/21 12:08 Sodium Chloride 0.9% 10 Ml Syringe FLUSH 10 ml ASDIRECTED PRN Administration Keep Vein Open Sodium Chloride 2.5 ml 01/26/21 11:31 01/26/21 12:08 Sodium Chloride 0.9% 2.5 Ml Syringe FLUSH 2.5 ml ASDIRECTED PRN Administration Keep Vein Open Departure - Departure Time of Disposition: 13:30 Disposition: Home, Self-Care 01 Condition: Good Clinical Impression: Visual loss, left eye - Discharge Information Instructions: Visual Disturbances Referrals: Chad Hernandez MD [Primary Care Provider] - Pan Bower MD [Ordering Only Provider] - Additional Instructions: Please go directly to office of Dr. Pan Bower [address] Phone [phone] Afterward proceed to the intake area here for outpatient MRI and you should arrive by 4:45 PM. Please have the courtesy to call if Dr. Boo feels this is an isolated event and cancel the MRI. The following information is given to patients seen in the emergency department who are being discharged to home. This information is to outline your options for follow-up care. We provide all patients seen in our emergency department with a follow-up referral. The need for follow-up, as well as the timing and circumstances, are variable depending upon the specifics of your emergency department visit. If you don't have a primary care physician on staff, we will provide you with a referral. We always advise you to contact your personal physician following an emergency department visit to inform them of the circumstance of the visit and for follow-up with them and/or the need for any referrals to a consulting specialist. The emergency department will also refer you to a specialist when appropriate. This referral assures that you have the opportunity for follow-up care with a specialist. All of these measure are taken in an effort to provide you with optimal care, which includes your follow-up. Under all circumstances we always encourage you to contact your private physician who remains a resource for coordinating your care. When calling for follow-up care, please make the office aware that this follow-up is from your recent emergency room visit. If for any reason you are refused follow-up, please contact the [facility] Emergency Department at and asked to speak to the emergency department charge nurse. Sepsis Event Note (ED) - Focused Exam Vital Signs: Vital Signs Temp Pulse Resp BP Pulse Ox 01/26/21 13:08 74 16 130/60 97 01/26/21 12:15 69 17 144/73 H 98 01/26/21 11:25 36.4 C 75 17 166/75 H 98 - My Orders Last 24 Hours: My Active Orders 01/26/21 11:31 EKG Documentation Completion [RC] AM Sodium Chloride 0.9% [Saline Flush] 10 ml FLUSH ASDIRECTED PRN Sodium Chloride 0.9% [Saline Flush] 2.5 ml FLUSH ASDIRECTED PRN Saline Lock Insert [OM.PC] Stat 01/26/21 12:49 Visual Acuity [Vision Test] [RC] ASDIRECTED - Assessment/Plan Last 24 Hours: My Active Orders 01/26/21 11:31 EKG Documentation Completion [RC] AM Sodium Chloride 0.9% [Saline Flush] 10 ml FLUSH ASDIRECTED PRN Sodium Chloride 0.9% [Saline Flush] 2.5 ml FLUSH ASDIRECTED PRN Saline Lock Insert [OM.PC] Stat 01/26/21 12:49 Visual Acuity [Vision Test] [RC] ASDIRECTED
[2021-01-26 12:12] LABS: CARBON DIOXIDE,CO2 27.5 mmol/L (21.0-32.0); POTASSIUM,K 3.9 mmol/L (3.5-5.1)
--- NOTE | 2021-01-26 12:38 | CT ---
INDICATION: Headache and blurry vision in left eye. TECHNIQUE: Scanning of the head was performed without IV contrast material. Coronal and sagittal reconstructions were obtained. COMPARISON: Head CT of 10/06/2018. FINDINGS: No acute hemorrhage, parenchymal attenuation abnormality, or mass effect is demonstrated. Differentiation between the dubois matter and white matter is preserved. The ventricles and other subarachnoid spaces are within normal limits. No calvarial abnormality is evident. The visualized paranasal and mastoid sinuses are clear. IMPRESSION: Negative noncontrast head CT. Please note that all CT scans at this facility use dose modulation, iterative reconstruction, and/or weight-based dosing when appropriate to reduce radiation dose to as low as reasonably achievable. Dictated by Gibran Bolden MD @ 01/26/2021 12:37:[address] Gibran Bolden @ Jan 26 2021 12:37PM
[2021-01-26 13:48] VITALS: BP 117/62; PULSE 73
== END 2021-01-26 13:49 | disposition home or self-care (01) ==
LOC: MW.ED 11:25
DX: H54.7 Unspecified visual loss (principal); K21.9 Gastro-esophageal reflux disease without esophagitis; E66.9 Obesity, unspecified; E11.9 Type 2 diabetes mellitus without complications; Z88.1 Allergy status to other antibiotic agents; Z88.2 Allergy status to sulfonamides; Z88.6 Allergy status to analgesic agent
CPT/HCPCS: 70450; 70450-26; 80053; 82947; 85025; 85652; 93005; 93010; 99283; 99284-25

== ENCOUNTER 2022-07-27 17:52 | Observation (INO) | payer BC ==
[2022-07-27 22:07] LABS: POTASSIUM,K 4.1 mmol/L (3.5-5.1)
[2022-07-28] MEDS ORDERED: Furosemide 40 MG/4 ML VIAL IVPUSH STA (00:25)
[2022-07-28] MEDS ORDERED: Albuterol/Ipratropium 3.0-0.5 MG/3 ML Neb Soln NEB PRN (00:35)
[2022-07-28] MEDS ORDERED: Ondansetron 4 MG/2 ML SDV IVPUSH PRN (00:35)
[2022-07-28] MEDS ORDERED: ClonazePAM 0.5 MG Tab PO PRN (00:38)
[2022-07-28] MEDS ORDERED: CLONAZEPAM 1 MG PO PRN (00:38)
[2022-07-28] MEDS ORDERED: 50% Dextrose in Water 50 ML Syringe IVPUSH PRN (00:42)
[2022-07-28] MEDS ORDERED: Glucagon,Human Recombinant 1 MG Vial IM PRN (00:42)
[2022-07-28] MEDS ORDERED: Aspirin 81 MG Tab.EC PO SCH (00:45)
[2022-07-28] MEDS: Acetaminophen 325 MG Tab PO PRN ×2 (03:26→08:56)
[2022-07-28 07:49] LABS: CARBON DIOXIDE,CO2 28.7 mmol/L (21.0-32.0); POTASSIUM,K 3.6 mmol/L (3.5-5.1)
[2022-07-28] MEDS: Insulin Aspart 100 Units/ML 3 ML Pen SUBCUT SCH ×2 (08:54→11:51)
[2022-07-28 08:58] VITALS: BP 132/61; PULSE 83
[2022-07-28] MEDS ORDERED: B LONGUM PO SCH (09:00)
[2022-07-28] MEDS ORDERED: Furosemide 40 MG/4 ML VIAL IVPUSH SCH (09:00)
[2022-07-28] MEDS ORDERED: B LACTIS PO SCH (09:00)
[2022-07-28] MEDS ORDERED: Non-Formulary Medication 1 Each (Ranitidine 150 MG Tablet) PO SCH (09:00)
[2022-07-28] MEDS ORDERED: Metoprolol Succinate 50 MG Tab.ER PO SCH (09:00)
[2022-07-28] MEDS ORDERED: ACIDOPHIL PO SCH (09:00)
[2022-07-28] MEDS ORDERED: [UNRECOGNIZED DRUG - OTHER] PO SCH (09:00)
[2022-07-28] MEDS ORDERED: Ketorolac 30 MG/ML SDV IVPUSH ONE (11:29)
== END 2022-07-28 12:55 | disposition home or self-care (01) ==
LOC: MW.ED 17:52 → MW.MS 07-28 00:28
PROVIDERS: ADMIT Student in an Organized Health Care Education/Training Program; ATTEND Student in an Organized Health Care Education/Training Program
DX: S09.90XA Unspecified injury of head, initial encounter (principal); I11.0 Hypertensive heart disease with heart failure; I50.9 Heart failure, unspecified; I44.7 Left bundle-branch block, unspecified; E11.9 Type 2 diabetes mellitus without complications; K21.9 Gastro-esophageal reflux disease without esophagitis; K58.9 Irritable bowel syndrome, unspecified; F41.9 Anxiety disorder, unspecified; F32.A Depression, unspecified; E66.9 Obesity, unspecified; Z88.2 Allergy status to sulfonamides; Z88.6 Allergy status to analgesic agent; Z88.1 Allergy status to other antibiotic agents; Z79.82 Long term (current) use of aspirin; Z79.899 Other long term (current) drug therapy; Z98.890 Other specified postprocedural states; Z90.710 Acquired absence of both cervix and uterus; Z20.822 Contact with and (suspected) exposure to COVID-19; W19.XXXA Unspecified fall, initial encounter
CPT/HCPCS: 36415; 70450; 71045; 72125; 73130; 80048; 80053; 80061; 82947; 83605; 83735; 83880; 84100; 84484; 85025; 85610; 87040; 87635; 93005; A9270; J1885; J1940; 96374; 96375; 96376; 99285-25; G0378; U0002

== ENCOUNTER 2022-10-04 10:30 | Inpatient (IN) | payer BC ==
[2022-10-04] MEDS ORDERED: Sodium Chloride 0.9% 2.5 ML Syringe FLUSH PRN ×2 (10:35→15:09)
[2022-10-04] MEDS ORDERED: Sodium Chloride 0.9% 10 ML Syringe FLUSH PRN ×2 (10:35→15:09)
[2022-10-04] MEDS ORDERED: Dextrose 5%-0.9% NaCl 1,000 ML IV SCH (11:00)
[2022-10-04 11:19] LABS: CARBON DIOXIDE,CO2 28.2 mmol/L (21.0-32.0); POTASSIUM,K 4.3 mmol/L (3.5-5.1)
[2022-10-04] MEDS ORDERED: Azithromycin 500 MG in Sodium Chloride 0.9% 250 ML IV ONE (11:28)
[2022-10-04] MEDS ORDERED: cefTRIAXone 1 GM in Sodium Chloride 0.9% 50 ML IV ONE (11:28)
[2022-10-04] MEDS ORDERED: 50% Dextrose in Water 50 ML Syringe IVPUSH ONE ×2 (11:38→16:10)
[2022-10-04] MEDS ORDERED: Iopamidol 755 MG/ML 500 ML Multipack Bottle IVPUSH STA (12:11)
[2022-10-04] MEDS ORDERED: Sodium Chloride 23.4% 77 MEQ in Dextrose 10% in Water 500 ML IV SCH ×2 (13:00)
[2022-10-04] MEDS ORDERED: Sodium Chloride 23.4% 154 MEQ in Dextrose 10% in Water 1,000 ML IV SCH ×2 (13:00)
[2022-10-04] MEDS ORDERED: Sodium Chloride 77 MEQ in Dextrose 10% in Water 500 ML IV SCH ×4 (13:15→22:38)
[2022-10-04] MEDS ORDERED: Morphine 2 MG/ML SYRINGE IVPUSH ONE (14:47)
[2022-10-04] MEDS ORDERED: Ketorolac 30 MG/ML SDV IVPUSH ONE (14:56)
[2022-10-04] MEDS ORDERED: Sodium Chloride 0.9% 1,000 ML IV ONE (15:13)
[2022-10-04] MEDS: Sodium Chloride 77 MEQ in Dextrose 10% in Water 500 ML IV SCH ×4 (16:22→21:24)
[2022-10-04] MEDS: Piperacillin/Tazobactam 3.375 GM in Sodium Chloride 0.9% 50 ML IV SCH (18:35)
[2022-10-04] MEDS: Heparin Sodium 5,000 Units/ML Vial SUBCUT SCH (20:38)
[2022-10-04] MEDS: Acetaminophen 500 MG Tab PO PRN (20:52)
[2022-10-04] MEDS ORDERED: Sodium Chloride 0.9% 500 ML IV SCH (23:00)
[2022-10-05] MEDS: Albuterol/Ipratropium 3.0-0.5 MG/3 ML Neb Soln NEB PRN (00:29)
[2022-10-05] MEDS: Piperacillin/Tazobactam 3.375 GM in Sodium Chloride 0.9% 50 ML IV SCH ×5 (01:00→23:18)
[2022-10-05] MEDS: Acetaminophen 500 MG Tab PO PRN ×4 (01:00→21:09)
[2022-10-05] MEDS ORDERED: Magnesium Sulfate/Water 4 GM in Premix Bag 1 BAG IV ONE (08:05)
[2022-10-05] MEDS: Heparin Sodium 5,000 Units/ML Vial SUBCUT SCH ×2 (08:06→21:10)
[2022-10-05] MEDS ORDERED: Ketorolac 30 MG/ML SDV IVPUSH ONE (08:41)
[2022-10-05] MEDS: Azithromycin 500 MG in Sodium Chloride 0.9% 250 ML IV SCH (12:13)
[2022-10-05] MEDS: Ondansetron 4 MG/2 ML SDV IVPUSH PRN (12:44)
[2022-10-05] MEDS ORDERED: Glucagon,Human Recombinant 1 MG Vial IM PRN (12:55)
[2022-10-05] MEDS ORDERED: 50% Dextrose in Water 50 ML Syringe IVPUSH PRN (12:55)
[2022-10-05] MEDS ORDERED: Insulin Aspart 100 Units/ML 3 ML Pen SUBCUT SCH (13:00)
[2022-10-05] MEDS: Ketorolac 30 MG/ML SDV IVPUSH PRN (15:52)
[2022-10-05] MEDS: oxyCODONE 5 MG Tab PO PRN (20:25)
[2022-10-06] MEDS: oxyCODONE 5 MG Tab PO PRN ×3 (02:43→21:15)
[2022-10-06] MEDS: Piperacillin/Tazobactam 3.375 GM in Sodium Chloride 0.9% 50 ML IV SCH ×4 (06:18→23:05)
[2022-10-06] MEDS: Acetaminophen 500 MG Tab PO PRN (06:22)
[2022-10-06 07:49] LABS: CARBON DIOXIDE,CO2 27.9 mmol/L (21.0-32.0)
[2022-10-06] MEDS: Heparin Sodium 5,000 Units/ML Vial SUBCUT SCH ×2 (08:00→21:15)
[2022-10-06] MEDS: Albuterol/Ipratropium 3.0-0.5 MG/3 ML Neb Soln NEB PRN ×2 (10:04→19:48)
[2022-10-06] MEDS: Ketorolac 30 MG/ML SDV IVPUSH PRN ×2 (10:52→19:48)
[2022-10-06] MEDS ORDERED: Glucagon,Human Recombinant 1 MG Vial IM PRN (11:39)
[2022-10-06] MEDS ORDERED: 50% Dextrose in Water 50 ML Syringe IVPUSH PRN (11:39)
[2022-10-06] MEDS ORDERED: Venlafaxine 37.5 MG Cap.ER PO SCH (12:00)
[2022-10-06] MEDS: Azithromycin 500 MG in Sodium Chloride 0.9% 250 ML IV SCH (12:35)
[2022-10-06] MEDS: Insulin Aspart 100 Units/ML 3 ML Pen SUBCUT SCH ×2 (12:57→19:21)
[2022-10-06] MEDS ORDERED: ClonazePAM 1 MG Tab PO PRN (14:00)
[2022-10-06] MEDS: Calcium Carbonate/Vitamin D3 1500 MG-400 Units Tab PO SCH (21:15)
[2022-10-06] MEDS: traZODone 50 MG Tab PO SCH (21:15)
[2022-10-06] MEDS: atorvaSTATin 20 MG Tab PO SCH (21:15)
[2022-10-07] MEDS: Piperacillin/Tazobactam 3.375 GM in Sodium Chloride 0.9% 50 ML IV SCH ×4 (05:50→23:01)
[2022-10-07] MEDS: oxyCODONE 5 MG Tab PO PRN ×3 (06:55→20:00)
[2022-10-07 06:59] LABS: CARBON DIOXIDE,CO2 24.6 mmol/L (21.0-32.0)
[2022-10-07] MEDS: Insulin Aspart 100 Units/ML 3 ML Pen SUBCUT SCH ×3 (08:17→17:11)
[2022-10-07] MEDS: Venlafaxine 37.5 MG Cap.ER PO SCH (08:30)
[2022-10-07] MEDS: Heparin Sodium 5,000 Units/ML Vial SUBCUT SCH ×2 (08:39→19:59)
[2022-10-07] MEDS: Calcium Carbonate/Vitamin D3 1500 MG-400 Units Tab PO SCH ×2 (08:40→20:00)
[2022-10-07] MEDS: FOLIC ACID PO SCH (09:58)
[2022-10-07] MEDS ORDERED: VANCOmycin 1.75 GM/350 ML 1.75 GM in Premix Bag 1 BAG IV ONE (10:30)
[2022-10-07] MEDS: Azithromycin 500 MG in Sodium Chloride 0.9% 250 ML IV SCH (13:52)
[2022-10-07] MEDS: traZODone 50 MG Tab PO SCH (20:00)
[2022-10-07] MEDS: atorvaSTATin 20 MG Tab PO SCH (20:00)
[2022-10-07] MEDS: Albuterol/Ipratropium 3.0-0.5 MG/3 ML Neb Soln NEB PRN (20:13)
[2022-10-08] MEDS: oxyCODONE 5 MG Tab PO PRN ×2 (04:15→15:58)
[2022-10-08] MEDS: Piperacillin/Tazobactam 3.375 GM in Sodium Chloride 0.9% 50 ML IV SCH ×4 (05:31→23:02)
[2022-10-08] MEDS: Ondansetron 4 MG/2 ML SDV IVPUSH PRN ×2 (05:31→09:50)
[2022-10-08 06:07] LABS: POTASSIUM,K 4.1 mmol/L (3.5-5.1)
[2022-10-08 06:08] LABS: CARBON DIOXIDE,CO2 29.9 mmol/L (21.0-32.0)
[2022-10-08] MEDS: Insulin Aspart 100 Units/ML 3 ML Pen SUBCUT SCH ×3 (08:03→17:45)
[2022-10-08] MEDS ORDERED: Magnesium Sulfate/Water 2 GM in Premix Bag 1 BAG IV ONE (08:09)
[2022-10-08] MEDS ORDERED: Venlafaxine 75 MG Cap.ER PO SCH (09:00)
[2022-10-08] MEDS ORDERED: Furosemide 20 MG Tab PO SCH (09:45)
[2022-10-08] MEDS: Venlafaxine 37.5 MG Cap.ER PO SCH (09:56)
[2022-10-08] MEDS: Aspirin 81 MG Tab.EC PO SCH (09:56)
[2022-10-08] MEDS: Calcium Carbonate/Vitamin D3 1500 MG-400 Units Tab PO SCH ×2 (09:57→20:53)
[2022-10-08] MEDS: Heparin Sodium 5,000 Units/ML Vial SUBCUT SCH ×2 (09:57→20:53)
[2022-10-08] MEDS: Losartan 50 MG Tab PO SCH (10:29)
[2022-10-08] MEDS: Metoprolol Succinate 50 MG Tab.ER PO SCH (10:30)
[2022-10-08] MEDS: Albuterol/Ipratropium 3.0-0.5 MG/3 ML Neb Soln NEB PRN (10:31)
[2022-10-08] MEDS: FOLIC ACID PO SCH (11:18)
[2022-10-08] MEDS: Azithromycin 500 MG in Sodium Chloride 0.9% 250 ML IV SCH (13:40)
[2022-10-08] MEDS: Acetaminophen 500 MG Tab PO PRN (18:50)
[2022-10-08] MEDS: atorvaSTATin 20 MG Tab PO SCH (20:53)
[2022-10-08] MEDS: traZODone 50 MG Tab PO SCH (20:53)
[2022-10-09] MEDS: oxyCODONE 5 MG Tab PO PRN ×3 (04:04→18:51)
[2022-10-09] MEDS: Albuterol/Ipratropium 3.0-0.5 MG/3 ML Neb Soln NEB PRN (04:04)
[2022-10-09] MEDS: Piperacillin/Tazobactam 3.375 GM in Sodium Chloride 0.9% 50 ML IV SCH ×4 (06:03→23:08)
[2022-10-09] MEDS: Insulin Aspart 100 Units/ML 3 ML Pen SUBCUT SCH ×3 (09:02→17:02)
[2022-10-09] MEDS: Aspirin 81 MG Tab.EC PO SCH (09:04)
[2022-10-09] MEDS: Calcium Carbonate/Vitamin D3 1500 MG-400 Units Tab PO SCH ×2 (09:05→21:09)
[2022-10-09] MEDS: Metoprolol Succinate 50 MG Tab.ER PO SCH (09:05)
[2022-10-09] MEDS: Venlafaxine 37.5 MG Cap.ER PO SCH (09:05)
[2022-10-09] MEDS: Losartan 50 MG Tab PO SCH (09:05)
[2022-10-09] MEDS: Heparin Sodium 5,000 Units/ML Vial SUBCUT SCH ×2 (09:06→21:09)
[2022-10-09] MEDS: FOLIC ACID PO SCH (09:06)
[2022-10-09] MEDS ORDERED: Furosemide 40 MG/4 ML VIAL IVPUSH ONE (09:50)
[2022-10-09] MEDS: Azithromycin 500 MG in Sodium Chloride 0.9% 250 ML IV SCH (12:22)
[2022-10-09] MEDS: Acetaminophen 500 MG Tab PO PRN (17:04)
[2022-10-09] MEDS: atorvaSTATin 20 MG Tab PO SCH (21:09)
[2022-10-09] MEDS: traZODone 50 MG Tab PO SCH (21:10)
[2022-10-09] MEDS ORDERED: Calcium Carbonate 500 MG Tab.Chew PO PRN (22:41)
[2022-10-10] MEDS: oxyCODONE 5 MG Tab PO PRN ×2 (06:19→15:31)
[2022-10-10] MEDS: Piperacillin/Tazobactam 3.375 GM in Sodium Chloride 0.9% 50 ML IV SCH ×3 (06:19→17:14)
[2022-10-10] MEDS: Albuterol/Ipratropium 3.0-0.5 MG/3 ML Neb Soln NEB PRN (06:19)
[2022-10-10 06:40] LABS: CARBON DIOXIDE,CO2 34.2 mmol/L (21.0-32.0); POTASSIUM,K 3.7 mmol/L (3.5-5.1)
[2022-10-10] MEDS: Insulin Aspart 100 Units/ML 3 ML Pen SUBCUT SCH ×3 (07:26→17:13)
[2022-10-10] MEDS ORDERED: Furosemide 40 MG/4 ML VIAL IVPUSH ONE (08:49)
[2022-10-10] MEDS: Heparin Sodium 5,000 Units/ML Vial SUBCUT SCH ×2 (08:54→20:32)
[2022-10-10] MEDS: Metoprolol Succinate 50 MG Tab.ER PO SCH (08:54)
[2022-10-10] MEDS: Losartan 50 MG Tab PO SCH (08:54)
[2022-10-10] MEDS: Calcium Carbonate/Vitamin D3 1500 MG-400 Units Tab PO SCH ×2 (08:54→20:32)
[2022-10-10] MEDS: Venlafaxine 37.5 MG Cap.ER PO SCH (08:54)
[2022-10-10] MEDS: Aspirin 81 MG Tab.EC PO SCH (08:54)
[2022-10-10] MEDS: FOLIC ACID PO SCH (08:55)
[2022-10-10] MEDS: Acetaminophen 500 MG Tab PO PRN ×2 (09:02→20:30)
[2022-10-10] MEDS: Ondansetron 4 MG/2 ML SDV IVPUSH PRN ×2 (11:33→20:32)
[2022-10-10] MEDS: Azithromycin 500 MG in Sodium Chloride 0.9% 250 ML IV SCH (12:19)
[2022-10-10] MEDS: traZODone 50 MG Tab PO SCH (20:32)
[2022-10-10] MEDS: atorvaSTATin 20 MG Tab PO SCH (20:32)
[2022-10-11] MEDS: Piperacillin/Tazobactam 3.375 GM in Sodium Chloride 0.9% 50 ML IV SCH ×2 (00:03→05:28)
[2022-10-11] MEDS: oxyCODONE 5 MG Tab PO PRN (00:03)
[2022-10-11 06:13] LABS: CARBON DIOXIDE,CO2 32.9 mmol/L (21.0-32.0); POTASSIUM,K 3.4 mmol/L (3.5-5.1)
[2022-10-11] MEDS: Insulin Aspart 100 Units/ML 3 ML Pen SUBCUT SCH (06:38)
[2022-10-11] MEDS ORDERED: Magnesium Sulfate/Water 2 GM in Premix Bag 1 BAG IV ONE (07:46)
[2022-10-11] MEDS ORDERED: Potassium Chloride 20 MEQ Tab.ER PO ONE (07:46)
[2022-10-11] MEDS: Aspirin 81 MG Tab.EC PO SCH (09:02)
[2022-10-11] MEDS: Calcium Carbonate/Vitamin D3 1500 MG-400 Units Tab PO SCH (09:02)
[2022-10-11] MEDS: Venlafaxine 37.5 MG Cap.ER PO SCH (09:03)
[2022-10-11] MEDS: Metoprolol Succinate 50 MG Tab.ER PO SCH (09:04)
[2022-10-11] MEDS: Losartan 50 MG Tab PO SCH (09:04)
[2022-10-11 09:05] VITALS: BP 133/87; PULSE 107
[2022-10-11] MEDS: Heparin Sodium 5,000 Units/ML Vial SUBCUT SCH (09:05)
[2022-10-11] MEDS: FOLIC ACID PO SCH (09:05)
== END 2022-10-11 13:40 | disposition home or self-care (01) | DRG 137 ==
LOC: MW.ED 10:30 → MW.ICU 14:54 → MW.MS 10-05 16:54
PROVIDERS: ADMIT Internal Medicine; ATTEND Internal Medicine
PROC: 02HV33Z Insertion of Infusion Device into Superior Vena Cava, Percutaneous Approach (ICD-10-PCS; principal; 2022-10-08)
DX: J69.0 Pneumonitis due to inhalation of food and vomit (principal); J96.01 Acute respiratory failure with hypoxia; F41.9 Anxiety disorder, unspecified; I10 Essential (primary) hypertension; Z66 Do not resuscitate; F32.A Depression, unspecified; T85.694A Other mechanical complication of insulin pump, initial encounter; G47.33 Obstructive sleep apnea (adult) (pediatric); Z20.822 Contact with and (suspected) exposure to COVID-19; E11.649 Type 2 diabetes mellitus with hypoglycemia without coma; N30.00 Acute cystitis without hematuria; I44.7 Left bundle-branch block, unspecified; R78.81 Bacteremia; K44.9 Diaphragmatic hernia without obstruction or gangrene; E66.9 Obesity, unspecified; K21.9 Gastro-esophageal reflux disease without esophagitis; J45.20 Mild intermittent asthma, uncomplicated; Z79.899 Other long term (current) drug therapy; Z79.4 Long term (current) use of insulin; Z79.82 Long term (current) use of aspirin; Z79.52 Long term (current) use of systemic steroids; Z88.1 Allergy status to other antibiotic agents; Z88.2 Allergy status to sulfonamides; Z88.6 Allergy status to analgesic agent; Z87.19 Personal history of other diseases of the digestive system; Z90.710 Acquired absence of both cervix and uterus; Z68.37 Body mass index [BMI] 37.0-37.9, adult; Z90.89 Acquired absence of other organs; Z98.51 Tubal ligation status; Z98.890 Other specified postprocedural states; X58.XXXA Exposure to other specified factors, initial encounter; Y92.89 Other specified places as the place of occurrence of the external cause
CPT/HCPCS: 36410; 36415; 36600; 70450; 70450-26; 71045; 71045-26; 71100-26-LT; 71100-LT; 71275; 71275-26; 74177; 74177-26; 77001; 77001-26; 80048; 80053; 80202; 81001; 82803; 82947; 83605; 83690; 83735; 83880; 84484; 85025; 85730; 87040; 87077; 87154; 87186; 93005; 93010; 94667; 97110-GP; 97162-GP; 97530-GP; 99223; 99232; 99238; 99284; A9270-GY; J0456; J0696; J1644; J1815-GY; J1885; J1940; J2405; J2543; J3370; J3475; J3490; J7030; J7040; J7042; J7050; J7131; J7620-GY; Q9967; U0002

== ENCOUNTER 2024-09-18 08:26 | Inpatient (IN) | payer BC ==
[2024-09-18 09:54] LABS: BASOPHILS ABSOLUTE AUTO 0.05 K/uL (0.00-0.20); BASOPHILS PERCENT AUTO 0.8 % (0.0-1.0); EOSINOPHILS ABSOLUTE AUTO 0.14 K/uL (0.00-0.45); EOSINOPHILS PERCENT AUTO 2.3 % (0.0-6.0); HEMATOCRIT 45.2 % (37.0-47.0); HEMOGLOBIN 14.7 g/dL (12.0-16.0); IMMATURE GRAN ABSOLUTE AUTO 0.04 K/uL (0.00-0.05); IMMATURE GRAN PERCENT AUTO 0.7 % (0.0-0.4); LYMPHOCYTES ABSOLUTE AUTO 0.79 K/uL (1.00-4.80); MEAN CORPUSCULAR HGB CONC 32.5 g/dL (32.0-36.0); MEAN CORPUSCULAR VOLUME 89.2 fL (83.0-99.0); MEAN PLATELET VOLUME 9.1 fL (9.4-12.3); MONOCYTES ABSOLUTE AUTO 0.86 K/uL (0.00-0.80); MONOCYTES PERCENT AUTO 14.1 % (0.0-8.0); NEUTROPHILS PERCENT AUTO 69.1 % (41.0-71.0); PLATELET COUNT,PLT 317 K/uL (150-400); RED BLOOD CELL COUNT 5.07 M/uL (4.10-5.30); WHITE BLOOD CELL COUNT,WBC 6.08 K/uL (3.9-11.3)
[2024-09-18 10:14] LABS: A/G RATIO 0.7 (0.9-1.6); ALBUMIN 3.4 g/dL (3.4-5.0); BILIRUBIN TOTAL 0.4 mg/dL (0.2-1.0); CALCIUM 9.4 mg/dL (8.5-10.1); CARBON DIOXIDE,CO2 25.1 mmol/L (21.0-32.0); CREATININE 0.9 mg/dL (0.6-1.0); EST CRCL DRUG DOSING (CG) 46.55 mL/min; POTASSIUM,K 4.1 mmol/L (3.5-5.1); PROTEIN TOTAL,TP 8.1 g/dL (6.4-8.2)
[2024-09-18 10:54] LABS: PRO B-TYPE NATRIUR PEPT,BNPPRO 127 pg/mL (0-125)
[2024-09-18] MEDS: cefTRIAXone 1 GM in Sodium Chloride 0.9% 50 ML IV ONE (11:07)
[2024-09-18] MEDS: Acetaminophen 325 MG Tab PO ONE (12:10)
[2024-09-18] MEDS: Iopamidol 755 MG/ML 500 ML Multipack Bottle IVPUSH STA (12:42)
[2024-09-18] MEDS ORDERED: Albuterol 0.083% 2.5 MG/3 ML Neb Soln NEB PRN (14:44)
[2024-09-18] MEDS ORDERED: Albuterol/Ipratropium 3.0-0.5 MG/3 ML Neb Soln NEB PRN (14:44)
[2024-09-18] MEDS ORDERED: Polyethylene Glycol 3350 Powder 17 GM Packet PO PRN (14:44)
[2024-09-18] MEDS: Enoxaparin 40 MG/0.4 ML Syringe SUBCUT SCH (15:44)
[2024-09-18] MEDS ORDERED: Non-Formulary Medication 1 Each (Insulin Aspart [Novolog] 100 UNIT/ML Vial) SQ SCH (15:45)
[2024-09-18] MEDS ORDERED: Aspirin 81 MG Tab.EC PO SCH (15:45)
[2024-09-18] MEDS ORDERED: guaiFENesin 600 MG Tab.ER PO PRN (15:47)
[2024-09-18] MEDS ORDERED: [UNRECOGNIZED DRUG - OTHER] SUBCUT SCH (15:52)
[2024-09-18 16:26] LABS: HEMOGLOBIN A1C 7.7 %
[2024-09-18 16:29] LABS: TSH ULTRASENSITIVE 2.21 uIU/mL (0.36-3.74)
[2024-09-18] MEDS: Doxycycline 100 MG in Sodium Chloride 0.9% 100 ML IV SCH (16:39)
[2024-09-18] MEDS: Aspirin 81 MG Tab.EC PO SCH (16:39)
[2024-09-18] MEDS: Benzonatate 100 MG Cap PO PRN (16:40)
[2024-09-18] MEDS: Sodium Chloride 0.9% 1,000 ML IV SCH ×2 (16:41→19:44)
[2024-09-18] MEDS: Ondansetron 4 MG Tab.DIS PO PRN (16:59)
[2024-09-18 17:19] LABS: LACTIC ACID 1.2 mmol/L (0.4-2.0)
[2024-09-18] MEDS: Naproxen 500 MG Tab PO PRN (18:34)
[2024-09-18] MEDS: Melatonin 3 MG Tab PO PRN (20:51)
[2024-09-18] MEDS: atorvaSTATin 20 MG Tab PO SCH (20:51)
[2024-09-18] MEDS: Non-Formulary Medication 1 Each (Fluticasone Propion/Salmeterol [Fluticasone-Salmeterol 10 INH SCH (21:05)
[2024-09-19 06:23] LABS: BASOPHILS ABSOLUTE AUTO 0.03 K/uL (0.00-0.20); EOSINOPHILS ABSOLUTE AUTO 0.06 K/uL (0.00-0.45); EOSINOPHILS PERCENT AUTO 1.9 % (0.0-6.0); HEMATOCRIT 41.9 % (37.0-47.0); HEMOGLOBIN 12.8 g/dL (12.0-16.0); IMMATURE GRAN ABSOLUTE AUTO 0.02 K/uL (0.00-0.05); IMMATURE GRAN PERCENT AUTO 0.6 % (0.0-0.4); LYMPHOCYTES ABSOLUTE AUTO 0.85 K/uL (1.00-4.80); LYMPHOCYTES PERCENT AUTO 27.6 % (24.0-44.0); MEAN CORPUSCULAR HGB CONC 30.5 g/dL (32.0-36.0); MEAN CORPUSCULAR VOLUME 91.7 fL (83.0-99.0); MEAN PLATELET VOLUME 8.9 fL (9.4-12.3); MONOCYTES PERCENT AUTO 19.5 % (0.0-8.0); NEUTROPHILS ABSOLUTE AUTO 1.52 K/uL (1.80-7.70); NEUTROPHILS PERCENT AUTO 49.4 % (41.0-71.0); PLATELET COUNT,PLT 225 K/uL (150-400); RED BLOOD CELL COUNT 4.57 M/uL (4.10-5.30); WHITE BLOOD CELL COUNT,WBC 3.08 K/uL (3.9-11.3)
[2024-09-19 06:51] LABS: A/G RATIO 0.8 (0.9-1.6); BILIRUBIN TOTAL 0.3 mg/dL (0.2-1.0); CALCIUM 8.6 mg/dL (8.5-10.1); CARBON DIOXIDE,CO2 23.7 mmol/L (21.0-32.0); CREATININE 0.8 mg/dL (0.6-1.0); EST CRCL DRUG DOSING (CG) 52.37 mL/min; MAGNESIUM 1.8 mg/dL (1.8-2.4); POTASSIUM,K 3.9 mmol/L (3.5-5.1); PROTEIN TOTAL,TP 6.6 g/dL (6.4-8.2)
[2024-09-19] MEDS: Losartan 50 MG Tab PO SCH (08:36)
[2024-09-19] MEDS: Empagliflozin 25 MG Tab PO SCH (08:37)
[2024-09-19] MEDS: Metoprolol Succinate 50 MG Tab.ER PO SCH (08:37)
[2024-09-19] MEDS ORDERED: Non-Formulary Medication 1 Each (Levothyroxine Sodium [Levothyroxine Sodium] 50 MCG Capsul PO SCH (09:00)
[2024-09-19] MEDS: Formoterol/Mometasone 100-5 MCG 8.8 GM Inhaler INH SCH (09:23)
[2024-09-19] MEDS: Codeine/guaiFENesin 10-100 MG/5 ML Syrup 5 ML Cup PO SCH (10:37)
[2024-09-19] MEDS: Levothyroxine 50 MCG Tab PO SCH (10:37)
[2024-09-19] MEDS: cefTRIAXone 1 GM in Sodium Chloride 0.9% 50 ML IV SCH (11:00)
[2024-09-19] MEDS: Albuterol/Ipratropium 3.0-0.5 MG/3 ML Neb Soln NEB SCH (12:13)
[2024-09-19] MEDS: Acetaminophen 325 MG Tab PO PRN (15:37)
[2024-09-19] MEDS ORDERED: Glucagon,Human Recombinant 1 MG Vial IM PRN (19:34)
[2024-09-19] MEDS ORDERED: 50% Dextrose in Water 50 ML Syringe IVPUSH PRN (19:34)
[2024-09-19] MEDS: Ondansetron 4 MG/2 ML SDV IVPUSH PRN (20:56)
[2024-09-19] MEDS: Rosuvastatin 10 MG Tab PO SCH (22:18)
[2024-09-19] MEDS: Insulin Aspart 100 Units/ML 3 ML Pen SUBCUT SCH (22:22)
[2024-09-19] MEDS: ClonazePAM 1 MG Tab PO PRN (22:28)
[2024-09-20 05:03] LABS: BORDETELLA PARAPERT IS1001 Not Detected (Not Detected)
[2024-09-20 06:07] LABS: HEMATOCRIT 40.8 % (37.0-47.0); HEMOGLOBIN 13.2 g/dL (12.0-16.0); MEAN CORPUSCULAR HGB CONC 32.4 g/dL (32.0-36.0); MEAN CORPUSCULAR VOLUME 89.7 fL (83.0-99.0); MEAN PLATELET VOLUME 9.1 fL (9.4-12.3); PLATELET COUNT,PLT 219 K/uL (150-400); RED BLOOD CELL COUNT 4.55 M/uL (4.10-5.30); WHITE BLOOD CELL COUNT,WBC 2.78 K/uL (3.9-11.3)
[2024-09-20 06:34] LABS: A/G RATIO 0.8 (0.9-1.6); ALBUMIN 2.9 g/dL (3.4-5.0); BILIRUBIN TOTAL 0.3 mg/dL (0.2-1.0); CALCIUM 8.7 mg/dL (8.5-10.1); CARBON DIOXIDE,CO2 22.8 mmol/L (21.0-32.0); CREATININE 0.7 mg/dL (0.6-1.0); EST CRCL DRUG DOSING (CG) 59.85 mL/min; POTASSIUM,K 4.2 mmol/L (3.5-5.1); PROTEIN TOTAL,TP 6.6 g/dL (6.4-8.2)
[2024-09-20 07:28] LABS: BAND ABSOLUTE MAN 0.25; BAND PERCENT MAN 9 %; EOSINOPHILS ABSOLUTE MAN 0.03 K/uL (0.00-0.45); EOSINOPHILS PERCENT MAN 1 % (0-6); LYMPHOCYTES ABSOLUTE MAN 1.25 K/uL (1.00-4.80); LYMPHOCYTES PERCENT MAN 45 % (24-44); MONOCYTES PERCENT MAN 18 % (0-8); SEG NEUTROPHILS ABSOLUTE MAN 0.75 K/uL (1.80-7.70); SEG NEUTROPHILS PERCENT MAN 27 % (41-71)
[2024-09-20] MEDS: Venlafaxine 37.5 MG Cap.ER PO SCH (08:52)
[2024-09-20] MEDS: Oseltamivir 75 MG Cap PO SCH (08:52)
[2024-09-20] MEDS: Metoclopramide 10 MG/2 ML SDV IVPUSH PRN (15:43)
[2024-09-21 05:56] LABS: BASOPHILS ABSOLUTE AUTO 0.01 K/uL (0.00-0.20); BASOPHILS PERCENT AUTO 0.3 % (0.0-1.0); EOSINOPHILS ABSOLUTE AUTO 0.03 K/uL (0.00-0.45); HEMATOCRIT 39.7 % (37.0-47.0); HEMOGLOBIN 12.8 g/dL (12.0-16.0); IMMATURE GRAN ABSOLUTE AUTO 0.01 K/uL (0.00-0.05); IMMATURE GRAN PERCENT AUTO 0.3 % (0.0-0.4); LYMPHOCYTES ABSOLUTE AUTO 1.21 K/uL (1.00-4.80); LYMPHOCYTES PERCENT AUTO 42.3 % (24.0-44.0); MEAN CORPUSCULAR HEMOGLOBIN 29.1 pg (28.0-32.0); MEAN CORPUSCULAR HGB CONC 32.2 g/dL (32.0-36.0); MEAN CORPUSCULAR VOLUME 90.2 fL (83.0-99.0); MEAN PLATELET VOLUME 8.8 fL (9.4-12.3); MONOCYTES ABSOLUTE AUTO 0.43 K/uL (0.00-0.80); NEUTROPHILS ABSOLUTE AUTO 1.17 K/uL (1.80-7.70); NEUTROPHILS PERCENT AUTO 41.1 % (41.0-71.0); PLATELET COUNT,PLT 236 K/uL (150-400); WHITE BLOOD CELL COUNT,WBC 2.86 K/uL (3.9-11.3)
[2024-09-21 06:23] LABS: A/G RATIO 0.8 (0.9-1.6); BILIRUBIN TOTAL 0.3 mg/dL (0.2-1.0); CALCIUM 8.8 mg/dL (8.5-10.1); CREATININE 0.7 mg/dL (0.6-1.0); EST CRCL DRUG DOSING (CG) 59.85 mL/min; POTASSIUM,K 3.9 mmol/L (3.5-5.1); PROTEIN TOTAL,TP 6.6 g/dL (6.4-8.2)
[2024-09-21 11:54] VITALS: BP 129/60
[2024-09-21 12:03] VITALS: PULSE 84
== END 2024-09-21 14:52 | disposition home or self-care (01) | DRG 139 ==
LOC: MW.ED 08:26 → MW.MS 14:22 → OBSVTOIN 15:49 → MW.MS 16:05
PROVIDERS: ADMIT Family Medicine; ATTEND Internal Medicine
DX: J10.00 Influenza due to other identified influenza virus with unspecified type of pneumonia (principal); J96.01 Acute respiratory failure with hypoxia; Z66 Do not resuscitate; I10 Essential (primary) hypertension; K21.9 Gastro-esophageal reflux disease without esophagitis; E11.9 Type 2 diabetes mellitus without complications; E66.9 Obesity, unspecified; E03.9 Hypothyroidism, unspecified; G47.33 Obstructive sleep apnea (adult) (pediatric); F32.A Depression, unspecified; F41.9 Anxiety disorder, unspecified; J45.20 Mild intermittent asthma, uncomplicated; Z88.2 Allergy status to sulfonamides; Z88.1 Allergy status to other antibiotic agents; Z79.4 Long term (current) use of insulin; Z79.82 Long term (current) use of aspirin; Z79.84 Long term (current) use of oral hypoglycemic drugs; Z79.899 Other long term (current) drug therapy; Z79.51 Long term (current) use of inhaled steroids; Z86.711 Personal history of pulmonary embolism; Z90.710 Acquired absence of both cervix and uterus; Z68.39 Body mass index [BMI] 39.0-39.9, adult; Z98.51 Tubal ligation status
CPT/HCPCS: 36415; 70450; 70450-26; 71046; 71046-26; 71275; 71275-26; 74177; 74177-26; 80053; 82947; 83036; 83605; 83735; 83880; 84443; 84484; 85025; 87040; 87428-QW; 87486; 87581; 87633; 87641; 87899; 93005; 93010; 94640; 94664; 94667; 94668; 96365; 96372; 99222; 99232; 99239; 99284; 99285-25; A9270-GY; G0378; J0696; J1650; J1815-GY; J2405; J2765; J3490; J7030; J7620-GY; Q9967; U0002

== ENCOUNTER 2025-07-26 09:37 | Emergency (ER) | payer BC ==
[2025-07-26 09:56] VITALS: BP 150/73; PULSE 69
[2025-07-26 10:16] LABS: APPEARANCE,URINE CLEAR; GLUCOSE,URINE 500 mg/dL (NEGATIVE); OCCULT BLOOD,URINE NEGATIVE (NEGATIVE)
[2025-07-26 10:17] LABS: BASOPHILS ABSOLUTE AUTO 0.06 K/uL (0.00-0.20); BASOPHILS PERCENT AUTO 0.7 % (0.0-1.0); EOSINOPHILS ABSOLUTE AUTO 0.35 K/uL (0.00-0.45); EOSINOPHILS PERCENT AUTO 4.0 % (0.0-6.0); IMMATURE GRAN ABSOLUTE AUTO 0.04 K/uL (0.00-0.05); IMMATURE GRAN PERCENT AUTO 0.5 % (0.0-0.4); LYMPHOCYTES ABSOLUTE AUTO 2.61 K/uL (1.00-4.80); LYMPHOCYTES PERCENT AUTO 29.7 % (24.0-44.0); MEAN PLATELET VOLUME 9.0 fL (9.4-12.3); MONOCYTES ABSOLUTE AUTO 0.78 K/uL (0.00-0.80); MONOCYTES PERCENT AUTO 8.9 % (0.0-8.0); NEUTROPHILS ABSOLUTE AUTO 4.95 K/uL (1.80-7.70); NEUTROPHILS PERCENT AUTO 56.2 % (41.0-71.0); NRBC ABSOLUTE 0.00 K/uL (0.00-0.02); NRBC PERCENT 0.0 /100WBC (0.0-0.2); PLATELET COUNT,PLT 351 K/uL (150-400); RED BLOOD CELL COUNT 5.10 M/uL (4.10-5.30); WHITE BLOOD CELL COUNT,WBC 8.79 K/uL (3.9-11.3)
[2025-07-26 10:46] LABS: A/G RATIO 0.9 (0.9-1.6); ALANINE AMINOTRANSFERASE,ALT 20 IU/L (14-63); ASPARTATE AMNIOTRANSFERASE,AST 15 IU/L (15-37); BILIRUBIN TOTAL 0.4 mg/dL (0.2-1.0); BLOOD UREA NITROGEN,BUN 20 mg/dL (7.0-18.0); CARBON DIOXIDE,CO2 25.6 mmol/L (21.0-32.0); CHLORIDE,CL 106 mmol/L (98-107); CREATININE 1.0 mg/dL (0.6-1.0); GLUCOSE RANDOM 151 mg/dL (74-106); POTASSIUM,K 4.2 mmol/L (3.5-5.1); PROTEIN TOTAL,TP 7.6 g/dL (6.4-8.2); SODIUM,NA 141 mmol/L (136-145)
[2025-07-26 10:53] LABS: ESTIMATED GFR 63 mL/min (>60)
== END 2025-07-26 11:28 | disposition home or self-care (01) ==
LOC: MW.ED 09:37
DX: R10.9 Unspecified abdominal pain (principal); E11.9 Type 2 diabetes mellitus without complications; I11.0 Hypertensive heart disease with heart failure; E78.00 Pure hypercholesterolemia, unspecified; K21.9 Gastro-esophageal reflux disease without esophagitis; E66.9 Obesity, unspecified; Z90.49 Acquired absence of other specified parts of digestive tract; Z88.5 Allergy status to narcotic agent; Z88.0 Allergy status to penicillin; Z88.2 Allergy status to sulfonamides; Z79.82 Long term (current) use of aspirin; Z79.899 Other long term (current) drug therapy; Z79.890 Hormone replacement therapy; Z79.4 Long term (current) use of insulin
CPT/HCPCS: 36415; 74176; 80053; 81003; 83690; 85025; 99284; A9270; 99283

== ENCOUNTER 2025-08-10 06:33 | Day surgery (SDC) | payer BC ==
[~2025-08-10 06:33] MED LIST changes: -Acetaminophen/HYDROcodone 325-5 MG Tab PO PRN; -Lactated Ringers 1,000 ML IV SCH; +Sodium Chloride 0.9% 10 ML Syringe FLUSH PRN; +Sodium Chloride 0.9% 2.5 ML Syringe FLUSH PRN; -ceFAZolin 1 GM in Premix Bag 1 BAG IV SCH; +ceFAZolin 2 GM in Water For Injection, Sterile 20 ML IVPUSH ONE
[2025-08-10] MEDS: Lactated Ringers 1,000 ML IV SCH (07:13)
[2025-08-10] MEDS ORDERED: propofoL 500 MG/50 ML 50 ML ONE (07:30)
[2025-08-10] MEDS ORDERED: Ketamine HCL/NACL, ISO-OSM 50 MG/5 ML Syringe ONE (07:30)
[2025-08-10] MEDS ORDERED: dexmedeTOMIDine HCl 200 MCG/2 ML SDV ONE (08:27)
[2025-08-10 10:56] VITALS: BP 117/47; PULSE 89
== END 2025-08-10 09:45 | disposition home or self-care (01) ==
LOC: MW.SDS 06:33
PROVIDERS: ATTEND Surgery
DX: K62.1 Rectal polyp (principal); K62.89 Other specified diseases of anus and rectum; K57.30 Diverticulosis of large intestine without perforation or abscess without bleeding; K64.9 Unspecified hemorrhoids; K31.7 Polyp of stomach and duodenum; K20.0 Eosinophilic esophagitis; K44.9 Diaphragmatic hernia without obstruction or gangrene; I11.0 Hypertensive heart disease with heart failure; I50.9 Heart failure, unspecified; K21.9 Gastro-esophageal reflux disease without esophagitis; E03.9 Hypothyroidism, unspecified; E11.9 Type 2 diabetes mellitus without complications; G47.33 Obstructive sleep apnea (adult) (pediatric); E66.9 Obesity, unspecified; Z68.39 Body mass index [BMI] 39.0-39.9, adult; Z88.8 Allergy status to other drugs, medicaments and biological substances; Z88.2 Allergy status to sulfonamides; Z79.890 Hormone replacement therapy; Z79.82 Long term (current) use of aspirin; Z79.899 Other long term (current) drug therapy
CPT/HCPCS: 43239; 45380; J1308; J2003; J2704; J7120; 00813; J3490